=== PATIENT | female | born 1940 | race Caucasian/White ===

== ENCOUNTER 2016-11-19 15:48 | Inpatient (IN) | payer OTHER, BC ==
[~2016-11-19] VITALS: Ht 170.2 cm; Wt 63.1 kg
[~2016-11-19 15:48] MED LIST: LVNIS80 SQ; MGNO400 PO; NYSS/ PO; QSTP PO
[2016-11-19] MEDS ORDERED: PIPERACILLIN/TAZOBACTAM 3.375 GM/100ML D5W IV STA (16:34)
[2016-11-19] MEDS ORDERED: VANCOMYCIN INJ 1,000 MG in SODIUM CHLORIDE 0.9% 250ML 250 ML IV STA (16:34)
[2016-11-19] MEDS ORDERED: PIPERACILL/TAZOBAC IV 3.375 GM in DEXTROSE 5% 100ML IV SCH (16:45)
[2016-11-19] MEDS ORDERED: LEVAQUIN 500MG / 100ML D5W IV ONE (16:45)
[2016-11-19 16:46] LABS: BUN/CREATININE RATIO 33.6 (10-20); CALCIUM 9.1 mg/dl (8.5-10.1); CREATININE 0.94 mg/dl (0.60-1.20); MAGNESIUM 2.2 mg/dl (1.8-2.4); POTASSIUM 4.1 mmol/L (3.5-5.1)
[2016-11-19 16:48] LABS: ALB/GLOB RATIO 0.6 (0.9-2); INR 1.1 (0.9-1.1); PARTIAL THROMBOPLASTIN RATIO 1.6; PROTHROMBIN TIME (PATIENT) 11.9 SECONDS (9.0-12.0)
--- NOTE | 2016-11-19 16:50 | DIAGNOSTIC IMAGING REPORT ---
CHEST ONE VIEW PORTABLE CLINICAL HISTORY: congestion dyspnea COMPARISON STUDY: 11/07/2016 FINDINGS: Interval development of pulmonary vascular congestion. Tortuosity thoracic aorta. Central catheters. Vena cava. No focal infiltrate. IMPRESSION: Pulmonary vascular congestion. No focal infiltrate. Electronically signed by: Mark Reyes M.D. 11/19/2016 4:49 PM
[2016-11-19] MEDS ORDERED: ENOX60IN SQ (17:10)
[2016-11-19 17:39] LABS: URINE APPEARANCE CLOUDY (CLEAR); URINE BILIRUBIN NEG (NEG); URINE COLOR YELLOW; URINE EPITHELIAL CELL AUTO >30 /lpf (0-5); URINE NITRITE NEG (NEG); URINE SPECIFIC GRAVITY 1.022 (1.000-1.030); UROBILINOGEN NEG (NEG); ZZURINE CULT IF INDIC CATH YES
[2016-11-19 17:42] LABS: MANUAL MICROSCOPIC REQUIRED? NO; REVIEW REQ? YES
[2016-11-19 17:54] LABS: URINE PATH CASTS 0-3 GRANULAR CASTS /lpf (0)
[2016-11-19 18:14] LABS: HEMATOCRIT 27.2 % (37-47); MEAN CELL VOLUME 90.7 fL (80-100); MEAN CORPUSCULAR HEMOGLOBIN 31.3 pg (25-34); MEAN CORPUSCULAR HGB CONC 34.6 g/dl (32-36); MEAN PLATELET VOLUME 11.9 fL (7.4-10.4); PLATELET COUNT 157 K/uL (130-400); WHITE BLOOD COUNT 0.76 K/uL (4.8-10.8)
[2016-11-19 18:19] LABS: ANISOCYTOSIS PRESENT; BASO % 3.9 %; BASO ABS # 0.03 K/uL (0-0.2); COMPLETE YES; IG% 1.3 %; LARGE PLATELETS 1+; LYMPH % 42.1 %; LYMPH ABS # 0.32 K/uL (1.2-3.4); MONO % 35.5 %; NEUT % 17.2 %
--- NOTE | 2016-11-19 18:32 | EMERGENCY ROOM VISIT NOTE ---
History Report prepared by Marvin: Suzette Diallo Under the Supervision of: Dr. Black Joiner D.O. First contact with patient: 16:23 Chief Complaint: CONFUSION Stated Complaint: ALTERED MENTAL STATUS, FEVER, COUGH, CONGESTION Nursing Triage Summary: Presented via ALS from [facility] for increased confusion. Patient is neutropenic. Patient went to [facility] for rehab after havign a PE. History of Present Illness The patient is a 75 year old female who presents to the Emergency Room with complaints of worsening confusion beginning FUEL ATTENDANT. The patient is a resident at [facility]. She is there for rehab after a recent PE (11/15/16). Staff at [facility] reports that the patient is confused and more altered today. She is neutropenic and has a fever. She was sent to the ED for further evaluation. The patient denies any complaints at this time. The history is limited secondary to the patient's AMS. Source of History: patient, care home notes History Limited By: AMS Onset: FUEL ATTENDANT Position: other (global) Quality: other (confusion) Timing: worsening Associated Symptoms: + fevers Note: Pt is neutropenic. Review of Systems ROS is limited secondary to the patient's AMS. Past Medical & Surgical Medical Problems: (1) Constipation (2) Left leg DVT (3) MGUS (monoclonal gammopathy of unknown significance) (4) Neutropenic fever (5) Ovarian cancer (6) Ovarian cancer (7) Pulmonary emboli Surgical Problems: (1) History of appendectomy (2) History of hysterectomy (3) History of tonsillectomy Family History Diabetes mellitus FH: cancer FH: gallbladder disease Social History Smoking Status: Never Smoker Alcohol Use: none Drug Use: none Marital Status: single Occupation Status: retired Current/Historical Medications Scheduled Cholestyramine (Cholestyramine Light), 4 GM PO DAILY@1000 Enoxaparin (Lovenox), 60 MG SQ Q12H Magnesium Oxide (Magnesium-Oxide), 400 MG PO BID Nystatin (Nystatin Suspension), 5 ML PO QID Allergies Coded Allergies: Sulfa Antibiotics (Verified Allergy, Mild, UNKNOWN, 11/19/16) Codeine (Verified Allergy, Unknown, `, 11/19/16) Rabies Vaccine (Verified Allergy, Unknown, "can't remember", 11/19/16) Tetanus Toxoid (Verified Allergy, Unknown, ?, 11/19/16) Physical Exam Vital Signs Date Time Temp Pulse Resp B/P Pulse Ox O2 Delivery O2 Flow Rate FiO2 11/19/16 18:10 84 18 145/79 98 Room Air 11/19/16 16:32 97 Room Air 11/19/16 16:30 39.3 11/19/16 16:07 76 11/19/16 15:55 36.9 79 19 121/83 98 Room Air Physical Exam CONSTITUTIONAL/VITAL SIGNS: Reviewed / noted above. GENERAL: Non-toxic in appearance. INTEGUMENTARY: Warm, dry, and [place]. HEAD: Normocephalic. EYES: without scleral icterus or trauma. ENT/OROPHARYNX: clear and moist. LYMPHADENOPATHY/NECK: Is supple without lymphadenopathy or meningismus. RESPIRATORY: Lungs clear and equal. CARDIOVASCULAR: Regular rate and rhythm. GI/ABDOMEN: Soft and nontender. No organomegaly or pulsatile mass. No rebound or guarding. Normal bowel sounds. EXTREMITIES: Warm and well perfused. BACK: No CVA tenderness. NEUROLOGICAL: Intact without focal deficits. PSYCHIATRIC: normal affect. MUSCULOSKELETAL: Normally developed with good muscle tone. Medical Decision & Procedures ER Provider Diagnostic Interpretation: Radiology results as stated below per my review and radiologist interpretation: CHEST ONE VIEW PORTABLE CLINICAL HISTORY: congestion dyspnea COMPARISON STUDY: 11/07/2016 FINDINGS: Interval development of pulmonary vascular congestion. Tortuosity thoracic aorta. Central catheters. Vena cava. No focal infiltrate. IMPRESSION: Pulmonary vascular congestion. No focal infiltrate. Electronically signed by: Mark Reyes M.D. 11/19/2016 4:49 PM Laboratory Results 11/19/16 16:16 Red Blood Count 3.00, Mean Corpuscular Volume 90.7, Mean Corpuscular Hemoglobin 31.3, Mean Corpuscular Hemoglobin Concent 34.6, Mean Platelet Volume 11.9, Neutrophils (%) (Auto) 17.2, Lymphocytes (%) (Auto) 42.1, Monocytes (%) (Auto) 35.5, Eosinophils (%) (Auto) 0.0, Basophils (%) (Auto) 3.9, Neutrophils # (Auto ) 0.13, Lymphocytes # (Auto) 0.32, Monocytes # (Auto) 0.27, Eosinophils # (Auto ) 0.00, Basophils # (Auto) 0.03 11/19/16 16:16 Test 11/19/16 00:00 11/19/16 16:16 11/19/16 16:19 Urine Color YELLOW Urine Appearance CLOUDY (CLEAR) Urine pH 5.0 (4.5-7.5) Urine Specific [place] 1.022 (1.000-1.030) Urine Protein 1+ (NEG) Urine Glucose (UA) NEG (NEG) Urine Ketones NEG (NEG) Urine Occult Blood 1+ (NEG) Urine Nitrite NEG (NEG) Urine Bilirubin NEG (NEG) Urine Urobilinogen NEG (NEG) Urine Leukocyte Esterase NEG (NEG) Urine WBC (Auto) 1-5 /hpf (0-5) Urine RBC (Auto) 0-4 /hpf (0-4) Urine Hyaline Casts (Auto) 1-5 /lpf (0-5) Urine Epithelial Cells (Auto) >30 /lpf (0-5) Urine Bacteria (Auto) 3+ (NEG) Urine Renal Epithelial Cells /lpf (0-5) Urine Pathogenic Casts 0-3 GRANULAR CASTS /lpf (0) Urine Yeast (Auto) (NONE PRSENT) White Blood Count 0.76 K/uL (4.8-10.8) Red Blood Count 3.00 M/uL (4.2-5.4) Hemoglobin 9.4 g/dL (12.0-16.0) Hematocrit 27.2 % (37-47) Mean Corpuscular Volume 90.7 fL (80-100) Mean Corpuscular Hemoglobin 31.3 pg (25-34) Mean Corpuscular Hemoglobin Concent 34.6 g/dl (32-36) Platelet Count 157 K/uL (130-400) Mean Platelet Volume 11.9 fL (7.4-10.4) Neutrophils (%) (Auto) 17.2 % Lymphocytes (%) (Auto) 42.1 % Monocytes (%) (Auto) 35.5 % Eosinophils (%) (Auto) 0.0 % Basophils (%) (Auto) 3.9 % Neutrophils # (Auto) 0.13 K/uL (1.4-6.5) Lymphocytes # (Auto) 0.32 K/uL (1.2-3.4) Monocytes # (Auto) 0.27 K/uL (0.11-0.59) Eosinophils # (Auto) 0.00 K/uL (0-0.5) Basophils # (Auto) 0.03 K/uL (0-0.2) RDW Standard Deviation 64.8 fL (36.4-46.3) RDW Coefficient of Variation 19.3 % (11.5-14.5) Immature Granulocyte % (Auto) 1.3 % Immature Granulocyte # (Auto) 0.01 K/uL (0.00-0.02) Large Platelets 1+ Anisocytosis PRESENT Prothrombin Time 11.9 SECONDS (9.0-12.0) Prothromb Time International Ratio 1.1 (0.9-1.1) Activated Partial Thromboplast Time 41.5 SECONDS (21.0-31.0) Partial Thromboplastin Ratio 1.6 Anion Gap 8.0 mmol/L (3-11) Est Creatinine Clear Calc Drug Dose 49.5 ml/min Estimated GFR () 68.3 Estimated GFR (Non- 58.9 BUN/Creatinine Ratio 33.6 (10-20) Calcium Level 9.1 mg/dl (8.5-10.1) Magnesium Level 2.2 mg/dl (1.8-2.4) Total Bilirubin 0.8 mg/dl (0.2-1) Aspartate Amino Transf (AST/SGOT) 73 U/L (15-37) Alanine Aminotransferase (ALT/SGPT) 54 U/L (12-78) Alkaline Phosphatase 69 U/L (45-117) Total Protein 7.6 gm/dl (6.4-8.2) Albumin 2.9 gm/dl (3.4-5.0) Globulin 4.7 gm/dl (2.5-4.0) Albumin/Globulin Ratio 0.6 (0.9-2) Bedside Lactic Acid Venous 0.93 mmol/L (0.90-1.70) Laboratory results as stated above per my review. Medications Administered Medications (Trade) Dose Ordered Sig/Michael Route Start Time Stop Time Status Last Admin Dose Admin Vancomycin HCl/ Sodium Chloride (Vancomycin Inj/ Nss 250ml) 270 ml @ 125 mls/hr NOW STAT IV 11/19/16 16:34 11/19/16 18:43 DC 11/19/16 17:47 125 MLS/HR Levofloxacin 500 mg 500 mg NOW ONCE IV 11/19/16 16:45 11/19/16 16:46 DC 11/19/16 16:55 500 MG Piperacillin Sod/ Tazobactam Sod/ Dextrose (Zosyn Iv/D5 100ml) 115 ml @ 230 mls/hr TODAY@1645 IV 11/19/16 16:45 11/19/16 19:00 11/19/16 17:11 230 MLS/HR ECG Indication: altered mental status Rate (beats per minute): 76 Rhythm: normal sinus Findings: no acute ischemic change, no ectopy ED Course 1623: Previous medical records were reviewed. The patient was evaluated in room A2. A complete history and physical examination was performed. 1634: Vancomycin HCl 1000 mg/Sodium Chloride 270 ml @ 125 mls/hr IV 1645: Piperacillin Sod/Tazobactam Sod 3.375 gm/Dextrose 115 ml @ 230 mls/hr IV, Levofloxacin 500 mg IV 1838: I reassessed the patient at this time and she is resting comfortably. 1843: I spoke with Dr. Perez. We discussed the patients results and treatment plan. The patient will be evaluated by the [facility] for further management. Medical Decision Differential diagnosis: Etiologies such as viral syndrome, otitis, pharyngitis, pneumonia, influenza, meningitis, urinary tract infection, sepsis, bacteremia, as well as others were entertained. This is a 75-year-old female who presents to the ED from [facility]. The patient was sent there for weakness after being admitted for febrile neutropenia. The patient had a recent fever today and was sent here for evaluation. Temperature at [facility] was 101.3. The patient denies any specific complaints. She is currently undergoing treatment for recent PE. Her physical exam was relatively benign. An EKG shows a normal sinus rhythm at a rate of 76. Temperature here today was 39.3. Chest x-ray did not show any acute disease. BUN is 32 about panel was otherwise unremarkable. CBC reveals a WBC of 0.76 and ANC of 0.13. The patient was treated with IV Zosyn, IV Levaquin and IV vancomycin. She will be seen by the hospitalist for further inpatient care. Consults Time Called: 1841 Consulting Physician: Dr. Perez Returned Call: [address] Perez. We discussed the patients results and treatment plan. The patient will be evaluated by the [facility] for further management. Impression Primary Impression: Neutropenic fever Scribe Attestation The scribe's documentation has been prepared under my direction and personally reviewed by me in its entirety. I confirm that the note above accurately reflects all work, treatment, procedures, and medical decision making performed by me. Departure Information Dispostion Being Evaluated By Hospitalist Jim Elliott M.D. (PCP) Patient Instructions A Signature Page, My [facility]
[2016-11-19] MEDS ORDERED: CONSULT PHARMACY STA (20:31)
[2016-11-19] MEDS ORDERED: ACETAMINOPHEN 325 MG TAB PO PRN (20:45)
[2016-11-19] MEDS ORDERED: PIPERACILL/TAZOBAC IV 4.5 GM in DEXTROSE 5% 100ML 100 ML IV SCH (20:45)
[2016-11-19] MEDS ORDERED: ONDANSETRON INJ 2 MG/ML 2 ML VIAL IV PRN (20:45)
[2016-11-19] MEDS ORDERED: ALUMINUM/MAGNESIUM/SIMETH (MAALOX MAX) 30 ML UDC PO PRN (20:45)
[2016-11-19] MEDS ORDERED: SODIUM CHLORIDE 0.9% 1000ML 1,000 ML IV SCH (20:45)
[2016-11-19] MEDS ORDERED: MAGNESIUM HYDROXIDE SUSP 30 ML UDC PO PRN (20:45)
[2016-11-19] MEDS ORDERED: VANCOMYCIN CONSULT ACTIVE PRN (21:00)
[2016-11-19] MEDS ORDERED: PIPERACILL/TAZOBAC CONSULT ACTIVE PRN (21:00)
--- NOTE | 2016-11-19 21:13 | HISTORY & PHYSICAL EXAMINATION ---
DATE OF ADMISSION: 11/19/2016 REASON FOR PRESENTATION: Fever. REASON FOR ADMISSION: Neutropenic fever. HISTORY OF PRESENT ILLNESS: Ms. Blood, she is a 75-year-old female with stage IV metastatic ovarian cancer. She was in our facility in October, discharged on November 13 with a neutropenic fever and at that time was found to have a urinary tract infection, which grew a pansensitive E. coli. She was treated with 7 days of ciprofloxacin and sent to [facility]. During that stay, she also did receive 2 units of packed red blood cells. At the time of her discharge, her white blood cell count was 1.79. During that hospitalization, there was some discussion in the oncologist's notes about utility of additional therapy, although Ms. Blood does not recall that discussion, this is documented in Dr. Condon's note. She is here today with a temperature of 39.3 Celsius. She has no focal complaints or symptoms such as cough, sinus fullness, tender teeth, painful skin areas or dysuria. She has a chronic persistent diarrhea that began during her hospital stay and has persistent despite the use of cholestyramine since discharge. During her last hospital stay, she also did have C. diff sent which was unremarkable. The typical infectious etiologies were also negative. She had a rotavirus send away that was negative. In the Emergency Department, she was given vancomycin, Zosyn and Levaquin. PAST MEDICAL HISTORY: As mentioned, the ovarian cancer, MGUS, recent PE, DVT on therapeutic Lovenox, appendectomy, hysterectomy, tonsillectomy and the E. coli UTI. MEDICATIONS ON PRESENTATION: Really cholestyramine 4 grams daily, Lovenox 60 mg q. 12, magnesium oxide 400 b.i.d. and she was on nystatin suspension, which was stopped. SOCIAL HISTORY: She does not smoke or drink, never has. FAMILY HISTORY: Diabetes, cancer, and gallbladder disease. REVIEW OF SYSTEMS: Related general weakness and feeling ill because of her fever; 10 systems were reviewed and are negative. PHYSICAL EXAMINATION: VITAL SIGNS: Physically as mentioned, she was febrile in the ER, her pulse was 82, respirations 18, BP 132/79, O2 sat 98%. HEENT: PERRL, EOMI. Oropharynx - she is missing 2 front teeth there. Her other mucosa is without evidence of infection, induration, or thrush. NECK: Without lymphadenopathy, JVD, and her trachea is midline. HEART: Regular without murmurs, clicks, rubs or gallops. LUNGS: Clear without wheezes or crackles. Good air movement. ABDOMEN: Normoactive bowel sounds, soft, nontender, nondistended, no organomegaly. No bruits. EXTREMITIES: Without cyanosis, clubbing or edema. SKIN: With areas of bruising and some abrasions, but nothing looking acutely infected. NEUROLOGICALLY: She is awake, alert and appropriate. Cranial nerves II-XII are intact. Equal symmetrical strength and sensation. LABORATORY DATA: As mentioned, she is neutropenic with a total white count of 8.7 and 130 neutrophils. Her H\T\H was 9 and 27 and her platelet count was 157. BUN and creatinine are 32 and 0.9. Her glucose is 100. She does have slight elevation of the AST to 73, but the normal is 37; this is isolated but no other LFT abnormalities noted. Her albumin is poor of 2.9, likely with mild to moderate protein malnutrition as her total protein is normal at 7.6 but this may be a part of her MGUS, I am not sure. Coagulation studies are unremarkable. Urine shows 1+ blood, greater than 30 epis and culture is pending. IMAGING DATA: A chest x-ray was performed which showed no focal infiltrates and an EKG was performed which shows normal sinus rhythm. ASSESSMENT: A 75-year-old female here with neutropenic fever. PLAN: Per most recent up-to-date Dynamed, we will treat this patient with model therapy with Zosyn, pending culture results. We will maintain her vancomycin just because of her exposure to healthcare. We will reculture her urine in case she has a recurrent infection. Blood cultures are also pending. Regarding her recent DVT and PE, will continue her Lovenox therapy, hopefully her pharmacy can evaluate, just if need be. Regarding her diarrhea, we will recheck for infectious studies and continue her cholestyramine. Regarding her anemia, this is likely related to her malignant process, we will watch this to determine if she needs future transfusions. Regarding her isolated liver transaminase elevation, unclear the meaning of this. We will watch for clinical symptoms. She did have an abdomen and pelvis CT study done on October 24, there were no hepatic or splenic masses seen at that time. The patient is a full code. I discussed this with the patient and she says she is undecided at this time, likely this need be discussion had with oncology and perhaps palliative care to if she truly has no further salvage therapy available for her advanced malignancy, consideration for DNR status would be reasonable. MTDD
--- NOTE | 2016-11-19 21:27 | Pharmacy Progress Note ---
Pharmacy Antibiotic Consult Date of Service: Nov 19, 2016. Pharmacy Dosing Scope Pharmacy is consulted to initiate vancomycin IV and pip/tazo IV dosing therapy, order appropriate labs and adjust drug dose/frequency. Subjective The patient is a 75 year old female admitted on 11/19/16. Objective Height (Feet): 5 Height (Inches): 7.00 Weight (Kilograms): 69.900 Lab Results (24hrs): Laboratory Tests Test 11/19/16 16:16 BUN/Creatinine Ratio 33.6 Blood Urea Nitrogen 32 mg/dl Creatinine 0.94 mg/dl White Blood Count 0.76 K/uL Red Blood Count 3.00 M/uL Hemoglobin 9.4 g/dL Hematocrit 27.2 % Mean Corpuscular Volume 90.7 fL Mean Corpuscular Hemoglobin 31.3 pg Mean Corpuscular Hemoglobin Concent 34.6 g/dl Platelet Count 157 K/uL Mean Platelet Volume 11.9 fL Neutrophils (%) (Auto) 17.2 % Lymphocytes (%) (Auto) 42.1 % Monocytes (%) (Auto) 35.5 % Eosinophils (%) (Auto) 0.0 % Basophils (%) (Auto) 3.9 % Neutrophils # (Auto) 0.13 K/uL Lymphocytes # (Auto) 0.32 K/uL Monocytes # (Auto) 0.27 K/uL Eosinophils # (Auto) 0.00 K/uL Basophils # (Auto) 0.03 K/uL Micro Results: Item Value Date Time Urine Culture Received 11/19/16 0000 Urine,Catheterized Pending Blood Culture Received 11/19/16 1618 Blood Pending Blood Culture Received 11/19/16 1616 Blood Pending Assessment & Plan Assessment: * Patient is a 75 year-old female admitted with neutropenic fever. * She was recently admitted with neutropenic fever and is a [place] resident. Patient is at baseline renal function. * Pharmacy was consulted to dose the vancomycin IV and pip/tazo IV therapy. Patient received a 1x dose of levofloxacin in the ER. * Calculated vanco half-life to be ~15.4hrs, ke to be 0.0045hr-1, and Vd to be 0.74L/kg. * Urine culture and 2 BCs are pending in the computer. Plan: Vanco: * Patient received a loading dose of 1g x 1 dose of vanco in the ER. * Will give patient another loading dose of vanco of 750mg IV x 1 dose to make a full 25mg/kg load of vanco for the patient. * Will then make the maintenance dosing to be 1050mg IV q18h (~15mg/kg). * Will get a trough level on 11/22 @ 0130. This will be before the 3rd maintenance dose. Pip/tazo: * Patient got a 3.375g IV x 1 dose of pip/tazo. * Will make the maintenance dosing of pip/tazo to be 3.375g IV q8h for extended infusion dosing due to a CrCl>20ml/min. Pharmacy will continue to follow and will adjust dose/frequency as necessary. Thank you
[2016-11-19] MEDS ORDERED: VANCOMYCIN INJ 750 MG in SODIUM CHLORIDE 0.9% 250ML 250 ML IV ONE (21:30)
[2016-11-19] MEDS ORDERED: FILGRASTIM 300 MCG/ML 1 ML VIAL SQ STA (22:07)
[2016-11-19 22:36] VITALS: BP 126/69; PULSE 77; TEMP 37.2; O2SAT 98; BMI 22.5
[2016-11-19 23:51] VITALS: BP 111/66; PULSE 76; TEMP 37.2; O2SAT 97
[2016-11-20] MEDS: ENOXAPARIN 60 MG/0.6 ML SYR SQ SCH ×3 (00:09→21:40)
[2016-11-20] MEDS: PIPERACILL/TAZOBAC IV 3.375 GM in DEXTROSE 5% 100ML IV SCH ×4 (00:11→21:40)
[2016-11-20 03:45] VITALS: BP 111/68; PULSE 69; TEMP 37.1; O2SAT 97
[2016-11-20 05:51] LABS: COMPLETE YES; HEMATOCRIT 26.8 % (37-47); LYMPH % 12.2 %; LYMPH ABS # 0.21 K/uL (1.2-3.4); MEAN CELL VOLUME 91.5 fL (80-100); MEAN CORPUSCULAR HEMOGLOBIN 32.1 pg (25-34); MEAN CORPUSCULAR HGB CONC 35.1 g/dl (32-36); MEAN PLATELET VOLUME 10.8 fL (7.4-10.4); MONO % 14.5 %; NEUT % 73.3 %; PLATELET COUNT 140 K/uL (130-400); RED BLOOD COUNT 2.93 M/uL (4.2-5.4); WHITE BLOOD COUNT 1.72 K/uL (4.8-10.8)
[2016-11-20 06:18] LABS: BUN/CREATININE RATIO 23.3 (10-20); CALCIUM 8.4 mg/dl (8.5-10.1); CREATININE 0.96 mg/dl (0.60-1.20); POTASSIUM 3.9 mmol/L (3.5-5.1)
[2016-11-20 07:56] VITALS: BP 108/64; PULSE 69; TEMP 37; O2SAT 98
[2016-11-20] MEDS: MAGNESIUM OXIDE 400 MG TAB PO SCH ×2 (08:41→19:30)
[2016-11-20] MEDS: CHOLESTYRAMINE LIGHT 4 GM PKT PO SCH (10:10)
--- NOTE | 2016-11-20 10:10 | Hospitalist Progress Note ---
Hospitalist Progress Note Date of Service Nov 20, 2016. Subjective Pt evaluation today including: conversation w/ patient, physical exam, chart review, lab review, review of studies, review of inpatient medication list Pain: None PO Intake: Good Voiding: no voiding problems Pt was seen and examined this morning. She is doing ok, patient denies any acute complaints. Her forehead is wet with sweat, although she denies fever and chills overnight. Pt is agreeable to seeing oncology and palliative teams to see her. Constitutional: No chills, No fever, No sweats Respiratory: + shortness of breath (with minimal movement and exertion), No cough, No sputum Cardiovascular: No chest pain Abdomen: No constipation, No diarrhea, No nausea, No pain, No vomiting Musculoskeletal: No joint pain Neurologic: No numbness/tingling Skin: No rash Objective Vital Signs Date Time Temp Pulse Resp B/P Pulse Ox O2 Delivery O2 Flow Rate FiO2 11/20/16 03:45 37.1 69 20 111/68 97 Room Air 11/20/16 01:50 Room Air 11/19/16 23:51 37.2 76 18 111/66 97 Room Air 11/19/16 22:36 37.2 77 20 126/69 98 Room Air 11/19/16 21:23 78 18 140/60 97 Room Air 11/19/16 19:32 82 18 132/79 98 Room Air 11/19/16 18:10 84 18 145/79 98 Room Air 11/19/16 16:32 97 Room Air 11/19/16 16:30 39.3 11/19/16 16:07 76 11/19/16 15:55 36.9 79 19 121/83 98 Room Air Physical Exam General Appearance: + thin, + pertinent finding (Forhead is beaded with sweat) Eyes: PERRL, EOMI ENT: pharynx normal, + pertinent finding (poor dentition, missing multiple lower teeth) Neck: no JVD Respiratory/Chest: lungs clear, no accessory muscle use, + pertinent finding ( RR=18, no adventitious breath sounds. ) Cardiovascular: regular rate, rhythm, no murmur, + systolic murmur Abdomen: normal bowel sounds, non tender, soft Extremities: non-tender, no pedal edema, no calf tenderness Neurologic/Psychiatric: oriented x 3 Skin: normal color, + diaphoresis Laboratory Results Last 24 Hours Test 11/19/16 16:16 11/19/16 16:19 11/20/16 05:25 White Blood Count 0.76 K/uL 1.72 K/uL Red Blood Count 3.00 M/uL 2.93 M/uL Hemoglobin 9.4 g/dL 9.4 g/dL Hematocrit 27.2 % 26.8 % Mean Corpuscular Volume 90.7 fL 91.5 fL Mean Corpuscular Hemoglobin 31.3 pg 32.1 pg Mean Corpuscular Hemoglobin Concent 34.6 g/dl 35.1 g/dl Platelet Count 157 K/uL 140 K/uL Mean Platelet Volume 11.9 fL 10.8 fL Neutrophils (%) (Auto) 17.2 % 73.3 % Lymphocytes (%) (Auto) 42.1 % 12.2 % Monocytes (%) (Auto) 35.5 % 14.5 % Eosinophils (%) (Auto) 0.0 % 0.0 % Basophils (%) (Auto) 3.9 % 0.0 % Neutrophils # (Auto) 0.13 K/uL 1.26 K/uL Lymphocytes # (Auto) 0.32 K/uL 0.21 K/uL Monocytes # (Auto) 0.27 K/uL 0.25 K/uL Eosinophils # (Auto) 0.00 K/uL 0.00 K/uL Basophils # (Auto) 0.03 K/uL 0.00 K/uL RDW Standard Deviation 64.8 fL 64.4 fL RDW Coefficient of Variation 19.3 % 19.0 % Immature Granulocyte % (Auto) 1.3 % 0.0 % Immature Granulocyte # (Auto) 0.01 K/uL 0.00 K/uL Large Platelets 1+ Anisocytosis PRESENT Prothrombin Time 11.9 SECONDS Prothromb Time International Ratio 1.1 Activated Partial Thromboplast Time 41.5 SECONDS Partial Thromboplastin Ratio 1.6 Sodium Level 134 mmol/L 138 mmol/L Potassium Level 4.1 mmol/L 3.9 mmol/L Chloride Level 106 mmol/L 109 mmol/L Carbon Dioxide Level 20 mmol/L 21 mmol/L Anion Gap 8.0 mmol/L 8.0 mmol/L Blood Urea Nitrogen 32 mg/dl 22 mg/dl Creatinine 0.94 mg/dl 0.96 mg/dl Est Creatinine Clear Calc Drug Dose 49.5 ml/min 48.5 ml/min Estimated GFR () 68.3 66.6 Estimated GFR (Non- 58.9 57.4 BUN/Creatinine Ratio 33.6 23.3 Random Glucose 100 mg/dl 91 mg/dl Calcium Level 9.1 mg/dl 8.4 mg/dl Magnesium Level 2.2 mg/dl Total Bilirubin 0.8 mg/dl Aspartate Amino Transf (AST/SGOT) 73 U/L Alanine Aminotransferase (ALT/SGPT) 54 U/L Alkaline Phosphatase 69 U/L Total Protein 7.6 gm/dl Albumin 2.9 gm/dl Globulin 4.7 gm/dl Albumin/Globulin Ratio 0.6 Bedside Lactic Acid Venous 0.93 mmol/L Assessment and Plan This is a 75 yo F who presented with neutropenic fever, PMHx includes stage 4 metastatic ovarian cancer. She was recently admitted and discharged on 11/13 to [facility] for neutropenic fever, also being found to have a UTI and treated wtih 7 days of cipro. Pt is on therapeutic lovenox for recent DVT/PE. Neutropenic Fever - Pt remained afebrile overnight, other VSS- she is diaphoretic on exam her back is soaked with sweat. - Blood cultures in process - UA is slightly dirty, awaiting culture results. - Continue vanc and zosyn at this time, pt received 1 dose of levaquin yesterday in [facility] ED. - During last admission from 11/08-11/13 the patient received neupogen injections daily and Dr. Kwok was consulted. Will ask oncology to consult the patient to determine if salvage therapy would be appropriate at this time. It may also be reasonable to consider no further treatment with chemotherapy if the risks outweight the benefits. The patient is also Full resuscitation per code status, will consult palliative - pt is agreeable to speaking with both services. Anemia - Hbg remains stable MGUS Elevated Transaminase - likely in relation to malignancy although on the last CT of abdomen/pelvis completed on 10/24 there was no liver or spleen involvement. - Recheck tomorrow Diarrhea - Infectious studies including c. diff, shiga toxin, salmonella, rotavirus, giardia, were sent during last admission and were all negative. DVT/PE - Continue therapeutic lovenox Disposition: from home, lives alone, will ask CM to assist with discharge planning.
[2016-11-20 11:27] VITALS: BP 122/70; PULSE 71; TEMP 36.8; O2SAT 98
[2016-11-20] MEDS: VANCOMYCIN INJ 1,050 MG in SODIUM CHLORIDE 0.9% 250ML 250 ML IV SCH (13:42)
[2016-11-20 15:19] VITALS: BP 116/72; PULSE 18; PULSE 70; TEMP 36.5; O2SAT 98
[2016-11-20 19:59] VITALS: BP 112/69; PULSE 68; TEMP 36.9; O2SAT 96
[2016-11-21] VITALS: O2SAT 96
[2016-11-21 00:28] VITALS: BP 120/72; PULSE 70; TEMP 36.8; O2SAT 96
[2016-11-21 04:00] VITALS: BP 109/69; PULSE 71; TEMP 36.7; O2SAT 95
[2016-11-21] MEDS: PIPERACILL/TAZOBAC IV 3.375 GM in DEXTROSE 5% 100ML IV SCH ×3 (06:00→22:19)
[2016-11-21 06:13] LABS: BASO ABS # 0.01 K/uL (0-0.2); COMPLETE YES; HEMATOCRIT 26.1 % (37-47); LYMPH % 29.3 %; LYMPH ABS # 0.29 K/uL (1.2-3.4); MEAN CELL VOLUME 92.6 fL (80-100); MEAN CORPUSCULAR HEMOGLOBIN 31.9 pg (25-34); MEAN CORPUSCULAR HGB CONC 34.5 g/dl (32-36); MONO % 23.2 %; NEUT % 46.5 %; PLATELET COUNT 133 K/uL (130-400); RED BLOOD COUNT 2.82 M/uL (4.2-5.4); WHITE BLOOD COUNT 0.99 K/uL (4.8-10.8)
[2016-11-21 06:14] LABS: ANISOCYTOSIS PRESENT; LARGE PLATELETS 1+
[2016-11-21] MEDS: FILGRASTIM 300 MCG/ML 1 ML VIAL SQ SCH (08:23)
[2016-11-21] MEDS: MAGNESIUM OXIDE 400 MG TAB PO SCH ×2 (08:23→20:26)
[2016-11-21] MEDS: VANCOMYCIN INJ 1,050 MG in SODIUM CHLORIDE 0.9% 250ML 250 ML IV SCH (08:25)
[2016-11-21 08:39] VITALS: BP 108/62; PULSE 61; TEMP 36.8; O2SAT 95
--- NOTE | 2016-11-21 09:35 | Hospitalist Progress Note ---
Hospitalist Progress Note Date of Service Nov 21, 2016. Subjective Pt evaluation today including: conversation w/ patient, physical exam, chart review, lab review, review of studies, review of inpatient medication list Pain: None PO Intake: Good Voiding: no voiding problems Pt was seen and examined this morning. She is doing well overall without complaints. The pts WBC = 0.99 and neutrophils = 0.46. She denies fever, sweats or chills. VSS without fevers overnight. Pt is agreeable to starting neupogen injections Constitutional: No chills, No fever, No sweats ENT: No nasal symptoms, No sore throat, No tinnitus, No unusual epistaxis Respiratory: + shortness of breath (wih movement to bedside toilet. Pt has not gotten up and walked more than just in the room. ), No cough, No dyspnea at rest, No sputum Cardiovascular: No chest pain, No palpitations Abdomen: No constipation, No diarrhea, No nausea, No pain, No vomiting Musculoskeletal: No joint pain Female : No dysuria Neurologic: No numbness/tingling, No weakness Objective Vital Signs Date Time Temp Pulse Resp B/P Pulse Ox O2 Delivery O2 Flow Rate FiO2 11/21/16 08:39 36.8 61 20 108/62 95 Room Air 11/21/16 04:00 36.7 71 20 109/69 95 Room Air 11/21/16 00:28 36.8 70 18 120/72 96 Room Air 11/21/16 00:00 96 Room Air 11/20/16 19:59 36.9 68 20 112/69 96 Room Air 11/20/16 15:52 Room Air 11/20/16 15:19 36.5 70 18 116/72 98 Room Air 11/20/16 11:27 36.8 71 18 122/70 98 Room Air Physical Exam General Appearance: WD/WN, no apparent distress, + thin Eyes: PERRL, EOMI ENT: hearing grossly normal, + pertinent finding (poor dentition, missing multiple teeth. MMM. ) Neck: no JVD Respiratory/Chest: lungs clear, normal breath sounds, no respiratory distress, no accessory muscle use Cardiovascular: regular rate, rhythm, + pertinent finding (Mildly tachcardic, no MRGs) Abdomen: normal bowel sounds, non tender, soft, no organomegaly Extremities: non-tender, no pedal edema, no calf tenderness Neurologic/Psychiatric: alert, normal mood/affect, oriented x 3 Skin: normal color, warm/dry Laboratory Results Last 24 Hours Test 11/21/16 05:14 White Blood Count 0.99 K/uL Red Blood Count 2.82 M/uL Hemoglobin 9.0 g/dL Hematocrit 26.1 % Mean Corpuscular Volume 92.6 fL Mean Corpuscular Hemoglobin 31.9 pg Mean Corpuscular Hemoglobin Concent 34.5 g/dl Platelet Count 133 K/uL Mean Platelet Volume 11.0 fL Neutrophils (%) (Auto) 46.5 % Lymphocytes (%) (Auto) 29.3 % Monocytes (%) (Auto) 23.2 % Eosinophils (%) (Auto) 0.0 % Basophils (%) (Auto) 1.0 % Neutrophils # (Auto) 0.46 K/uL Lymphocytes # (Auto) 0.29 K/uL Monocytes # (Auto) 0.23 K/uL Eosinophils # (Auto) 0.00 K/uL Basophils # (Auto) 0.01 K/uL RDW Standard Deviation 65.8 fL RDW Coefficient of Variation 19.0 % Immature Granulocyte % (Auto) 0.0 % Immature Granulocyte # (Auto) 0.00 K/uL Large Platelets 1+ Anisocytosis PRESENT Assessment and Plan This is a 75 yo F who presented with neutropenic fever, PMHx includes stage 4 metastatic ovarian cancer. She was recently admitted and discharged on 11/13 to [facility] for neutropenic fever, also being found to have a UTI and treated wtih 7 days of cipro. Pt is on therapeutic lovenox for recent DVT/PE. Neutropenic Fever - Pt remained afebrile overnight, other VSS: - WBC decreased to 0.99 and neutrophils to 0.49. Will start neupogen injections today scheduled daily, with daily CBC with diff to monitor. Would ask that oncology weighs in on this today. - Blood cultures in process- NGTD prelim - UA is slightly dirty, culture- NGTD prelim - Continue vanc and zosyn at this time, pt received 1 dose of levaquin 11/19 in the ED. - During last admission from 11/08-11/13 the patient received neupogen injections daily and Dr. Kwok was consulted. Will ask oncology to consult the patient to determine if salvage therapy would be appropriate at this time. It may also be reasonable to consider no further treatment with chemotherapy if the risks outweight the benefits. - Pt code status was changed yesterday by Dr. Duke to DNR. Anemia - Hbg remains stable MGUS Elevated Transaminase - likely in relation to malignancy although on the last CT of abdomen/pelvis completed on 10/24 there was no liver or spleen involvement. - Follow am labs Diarrhea - Infectious studies including c. diff, shiga toxin, salmonella, rotavirus, giardia, were sent during last admission and were all negative. DVT/PE - Continue therapeutic lovenox Disposition: from home, lives alone, will ask CM to assist with discharge planning.
[2016-11-21] MEDS: CHOLESTYRAMINE LIGHT 4 GM PKT PO SCH ×2 (10:03→17:01)
[2016-11-21] MEDS: ENOXAPARIN 60 MG/0.6 ML SYR SQ SCH ×2 (10:04→22:18)
[2016-11-21] MEDS ORDERED: LOPERAMIDE HCL 2 MG CAP PO PRN (14:00)
--- NOTE | 2016-11-21 14:04 | Palliative Care Consultation ---
Consultation Date of Consultation: Nov 21, 2016. Requesting Physician: Dr. Tinoco Attending Physician: Dr. Tinoco Reason for Consultation: Goals of care History of Present Illness This 75 year old female patient presented to the ED two days ago with a neutropenic fever. She was just discharged from [facility] on 11/13 after being treated for neutropenic fever, E. coli UTI, and anemia. She had received 7 days of Cipro and 2 units of packed red blood cells. She went to [facility] rehab after that hospitalization. Apparently there was talk about additional therapy for her stage IV metastatic ovarian CA, but the patient was unaware of this. The day of admission, her temp was 39.3, and she was having persistent diarrhea since discharge despite the use of cholestyramine. She was admitted and started on Zosyn and vancomycin. Stool was tested, C. diff and other cultures negative. She lives at home alone but is now probably not going to be able to return home. Palliative care consulted to assist with establishing goals of care. I met with the patient in her room. She was awake, alert and oriented. Per nursing, she does have some periods of forgetfulness. The patient stated that she really doesn't know where she stands from an oncology standpoint and would be willing to do more therapy if available. She would like to talk with her oncologist before she is able to really say what her goals of care are regarding cancer treatment. We did discuss that she is not really able to live at home alone any more and she agreed. she is willing to be placed permanently. She still wishes to be a DNR/DNI. Further goals of care can be decided once she is able to speak with her oncologist. She denies any complaints of pain or discomfort at this time. Past Medical/Surgical History Medical History: Stage IV metastatic ovarian CA MGUS PE/DVT on Lovenox UTI Surgical History: Appendectomy Hysterectomy Tonsillectomy Social History Smoking Status: Never Smoker History of Alcohol Use: No Drug Use: none Marital Status: single Housing Status: lives alone Occupation Status: retired Review of Systems Constitutional: + sweats, + weakness, No chills, No fever Respiratory: No cough, No dyspnea on exertion, No shortness of breath, No sputum Cardiac: No chest pain, No palpitations Abdomen: + diarrhea, No nausea, No pain, No vomiting Female : No problem reported Allergies Coded Allergies: Sulfa Antibiotics (Verified Allergy, Mild, UNKNOWN, 11/19/16) Codeine (Verified Allergy, Unknown, `, 11/19/16) Rabies Vaccine (Verified Allergy, Unknown, "can't remember", 11/19/16) Tetanus Toxoid (Verified Allergy, Unknown, ?, 11/19/16) Medications Current Inpatient Medications Medications (Trade) Dose Ordered Sig/Michael Route Start Time Stop Time Status Last Admin Dose Admin Enoxaparin Sodium (Lovenox Inj) 60 mg Q12H SQ 11/19/16 22:00 12/19/16 21:59 11/21/16 10:04 60 MG Magnesium Oxide (Mag-Ox Tab) 400 mg BID PO 11/19/16 21:00 12/19/16 20:59 11/21/16 08:23 400 MG Acetaminophen (Tylenol Tab) 650 mg Q4H PRN PO 11/19/16 20:45 12/19/16 20:44 Al Hydrox/Mg Hydrox/Simethicone (Maalox Max Susp) 15 ml Q4H PRN PO 11/19/16 20:45 12/19/16 20:44 Magnesium Hydroxide (Milk Of Magnesia Susp) 30 ml Q6H PRN PO 11/19/16 20:45 12/19/16 20:44 Ondansetron HCl (Zofran Inj) 4 mg Q6H PRN IV 11/19/16 20:45 12/19/16 20:44 Cholestyramine Resin (Questran Powder Light) 4 gm DAILY@1000 PO 11/20/16 10:00 12/20/16 09:59 11/21/16 10:03 4 GM Vancomycin HCl (Consult) 1 ea UD PRN N/A 11/19/16 21:00 12/19/16 20:59 Piperacillin Sod/ Tazobactam Sod 1 ea 1 ea UD PRN N/A 11/19/16 21:00 12/19/16 20:59 Vancomycin HCl 1050 mg/Sodium Chloride 271 ml @ 125 mls/hr Q18H IV 11/20/16 14:00 11/30/16 13:59 11/21/16 08:25 125 MLS/HR Piperacillin Sod/ Tazobactam Sod/ Dextrose (Zosyn Iv/D5 100ml) 115 ml @ 28.75 mls/ hr Q8@0600,1400,2200 IV 11/19/16 23:00 11/29/16 22:59 11/21/16 13:00 28.75 MLS/HR Heparin Sodium (Porcine) (Heparin 100 Unit/ml 5ml Flush) 5 ml PRN PRN IV 11/20/16 13:15 12/20/16 13:14 11/21/16 06:00 5 ML Filgrastim (Neupogen Sq) 300 mcg QAM SQ 11/21/16 09:00 12/21/16 08:59 11/21/16 08:23 300 MCG Physical Exam Date Time Temp Pulse Resp B/P Pulse Ox O2 Delivery O2 Flow Rate FiO2 11/21/16 08:39 36.8 61 20 108/62 95 Room Air 11/21/16 08:30 Room Air 11/21/16 04:00 36.7 71 20 109/69 95 Room Air 11/21/16 00:28 36.8 70 18 120/72 96 Room Air 11/21/16 00:00 96 Room Air 11/20/16 19:59 36.9 68 20 112/69 96 Room Air 11/20/16 15:52 Room Air 11/20/16 15:19 36.5 70 18 116/72 98 Room Air General Appearance: no apparent distress Neck: no JVD, trachea midline Respiratory: lungs clear, no respiratory distress, no accessory muscle use Cardiovascular: regular rate, rhythm, no edema, + normal peripheral pulses Abdomen: normal bowel sounds, non tender, soft Neurologic/Psychiatric: alert, normal mood/affect, oriented x 3 Skin: + pallor Laboratory Results Last 24 Hours Test 11/21/16 05:14 White Blood Count 0.99 K/uL Red Blood Count 2.82 M/uL Hemoglobin 9.0 g/dL Hematocrit 26.1 % Mean Corpuscular Volume 92.6 fL Mean Corpuscular Hemoglobin 31.9 pg Mean Corpuscular Hemoglobin Concent 34.5 g/dl Platelet Count 133 K/uL Mean Platelet Volume 11.0 fL Neutrophils (%) (Auto) 46.5 % Lymphocytes (%) (Auto) 29.3 % Monocytes (%) (Auto) 23.2 % Eosinophils (%) (Auto) 0.0 % Basophils (%) (Auto) 1.0 % Neutrophils # (Auto) 0.46 K/uL Lymphocytes # (Auto) 0.29 K/uL Monocytes # (Auto) 0.23 K/uL Eosinophils # (Auto) 0.00 K/uL Basophils # (Auto) 0.01 K/uL RDW Standard Deviation 65.8 fL RDW Coefficient of Variation 19.0 % Immature Granulocyte % (Auto) 0.0 % Immature Granulocyte # (Auto) 0.00 K/uL Large Platelets 1+ Anisocytosis PRESENT Total Bilirubin 0.7 mg/dl Direct Bilirubin 0.2 mg/dl Aspartate Amino Transf (AST/SGOT) 80 U/L Alanine Aminotransferase (ALT/SGPT) 57 U/L Alkaline Phosphatase 68 U/L Total Protein 7.0 gm/dl Albumin 2.4 gm/dl Assessment & Plan Palliative Performance Scale: 70 % Problem list: Weakness Neutropenic fever Anemia MGUS Elevated Transaminase Diarrhea DVT/PE Goals of care Palliative care plan: Patient is still waiting to follow up with oncology to know where she stands from an oncology standpoint. If there is further treatment available for her, she would like to pursue it. She wishes to remain DNR/DNI. I am also recommending placement into a facility for her and likely she'll need acute rehab. PT/OT ordered, would follow their recommendations. No symptoms need addressed at this time. Thank you very much for this consult.
[2016-11-21 15:07] VITALS: BP 114/73; PULSE 68; TEMP 36.5; O2SAT 99
[2016-11-21 19:40] VITALS: BP 112/68; PULSE 66; TEMP 36.8; O2SAT 97
[2016-11-22] VITALS (7 sets, daily range): BP systolic 99–116; BP diastolic 61–71; PULSE 60–70; TEMP 36.3–36.8; O2SAT 95–99
[2016-11-22] MEDS ORDERED: VANCOMYCIN TROUGH SCH (01:30)
[2016-11-22] MEDS ORDERED: VANCOMYCIN TROUGH ONE (01:30)
[2016-11-22] MEDS: VANCOMYCIN INJ 1,050 MG in SODIUM CHLORIDE 0.9% 250ML 250 ML IV SCH (02:44)
[2016-11-22] MEDS: PIPERACILL/TAZOBAC IV 3.375 GM in DEXTROSE 5% 100ML IV SCH (06:04)
[2016-11-22 06:53] LABS: BUN/CREATININE RATIO 19.5 (10-20); CALCIUM 8.3 mg/dl (8.5-10.1); POTASSIUM 3.8 mmol/L (3.5-5.1)
[2016-11-22 07:03] LABS: HEMATOCRIT 26.9 % (37-47); MEAN CELL VOLUME 93.7 fL (80-100); MEAN CORPUSCULAR HEMOGLOBIN 31.4 pg (25-34); MEAN CORPUSCULAR HGB CONC 33.5 g/dl (32-36); MEAN PLATELET VOLUME 11.8 fL (7.4-10.4); PLATELET COUNT 126 K/uL (130-400); RED BLOOD COUNT 2.87 M/uL (4.2-5.4); WHITE BLOOD COUNT 1.19 K/uL (4.8-10.8)
[2016-11-22 07:05] LABS: ANISOCYTOSIS PRESENT; DOHLE BODIES 1+; LARGE PLATELETS 2+; VACUOLIZATION 2+
[2016-11-22 07:14] LABS: COMPLETE YES; LYMPH ABS # 0.29 K/uL (1.2-3.4); LYMPHOCYTE % 24.3 %; NEUTROPHILS % 54.8 %
[2016-11-22] MEDS: MAGNESIUM OXIDE 400 MG TAB PO SCH ×2 (07:43→21:16)
[2016-11-22] MEDS: FILGRASTIM 300 MCG/ML 1 ML VIAL SQ SCH (07:47)
[2016-11-22] MEDS: CHOLESTYRAMINE LIGHT 4 GM PKT PO SCH ×2 (09:39→17:06)
[2016-11-22] MEDS: ENOXAPARIN 60 MG/0.6 ML SYR SQ SCH ×2 (09:40→21:17)
--- NOTE | 2016-11-22 10:14 | Hospitalist Progress Note ---
Hospitalist Progress Note Date of Service Nov 22, 2016. Subjective Pt evaluation today including: conversation w/ patient, physical exam, chart review, lab review, review of studies, review of inpatient medication list Pain: None PO Intake: Good Voiding: no voiding problems Pt was seen and examined this morning. She has no acute complaints. Pt feels well, slept well. She reports 4 loose bowel movements this morning. Constitutional: No chills, No fever, No sweats ENT: No nasal symptoms, No sore throat, No tinnitus Respiratory: No cough, No shortness of breath, No wheezing Cardiovascular: No chest pain, No palpitations Abdomen: + diarrhea, No constipation, No nausea, No pain, No vomiting Musculoskeletal: No joint pain Female : No dysuria Neurologic: No numbness/tingling, No weakness Objective Vital Signs Date Time Temp Pulse Resp B/P Pulse Ox O2 Delivery O2 Flow Rate FiO2 11/22/16 07:50 Room Air 11/22/16 07:36 36.8 60 20 100/61 98 Room Air 11/22/16 04:04 36.6 60 17 99/64 96 Room Air 11/22/16 00:46 36.8 70 16 106/62 95 Room Air 11/22/16 00:15 Room Air 11/21/16 19:40 36.8 66 18 112/68 97 Room Air 11/21/16 15:07 36.5 68 18 114/73 99 Room Air 11/21/16 15:05 Room Air Physical Exam General Appearance: WD/WN, no apparent distress Eyes: PERRL, EOMI ENT: hearing grossly normal, pharynx normal, + pertinent finding (poor dentition) Neck: supple Respiratory/Chest: lungs clear, normal breath sounds, no respiratory distress, no accessory muscle use Cardiovascular: regular rate, rhythm, no JVD, no murmur Abdomen: normal bowel sounds, non tender, soft Extremities: non-tender, no pedal edema, no calf tenderness Neurologic/Psychiatric: alert, normal mood/affect, oriented x 3 Skin: normal color, warm/dry Laboratory Results Last 24 Hours Test 11/22/16 01:46 11/22/16 05:20 Vancomycin Level Trough 10.9 mcg/ml White Blood Count 1.19 K/uL Red Blood Count 2.87 M/uL Hemoglobin 9.0 g/dL Hematocrit 26.9 % Mean Corpuscular Volume 93.7 fL Mean Corpuscular Hemoglobin 31.4 pg Mean Corpuscular Hemoglobin Concent 33.5 g/dl Platelet Count 126 K/uL Mean Platelet Volume 11.8 fL RDW Standard Deviation 66.8 fL RDW Coefficient of Variation 19.4 % Neutrophils % (Manual) 54.8 % Lymphocytes % (Manual) 24.3 % Monocytes % (Manual) 20.0 % Blast Cells % 0.9 % Neutrophils # (Manual) 0.65 K/uL Total Absolute Neutrophils 0.65 K/uL Lymphocytes # (Manual) 0.29 K/uL Total Absolute Lymphocytes 0.29 K/uL Monocytes # (Manual) 0.24 K/uL Blast Cells # 0.01 K/uL Blood Smear Review Toxic Vacuolation 2+ Dohle Bodies 1+ Large Platelets 2+ Anisocytosis PRESENT Sodium Level 140 mmol/L Potassium Level 3.8 mmol/L Chloride Level 112 mmol/L Carbon Dioxide Level 18 mmol/L Anion Gap 10.0 mmol/L Blood Urea Nitrogen 19 mg/dl Creatinine 1.00 mg/dl Est Creatinine Clear Calc Drug Dose 46.5 ml/min Estimated GFR () 63.4 Estimated GFR (Non- 54.7 BUN/Creatinine Ratio 19.5 Random Glucose 80 mg/dl Calcium Level 8.3 mg/dl Assessment and Plan This is a 75 yo F who presented with neutropenic fever, PMHx includes stage 4 metastatic ovarian cancer. She was recently admitted and discharged on 11/13 to [facility] for neutropenic fever, also being found to have a UTI and treated wtih 7 days of cipro. Pt is on therapeutic lovenox for recent DVT/PE. Neutropenic Fever - Pt remained afebrile overnight, other VSS: - WBC decreased to 1.19 and neutrophils to 0.65. Continue neupogen injections today scheduled daily, with daily CBC with diff to monitor. Would ask that oncology weighs in on this today. - Blood cultures in process- NGTD prelim - UA is slightly dirty, culture- NGTD prelim - Continue vanc and zosyn at this time, pt received 1 dose of levaquin 11/19 in the ED. - During last admission from 11/08-11/13 the patient received neupogen injections daily and Dr. Kwok was consulted. Will ask oncology to consult the patient to determine if salvage therapy would be appropriate at this time. It may also be reasonable to consider no further treatment with chemotherapy if the risks outweight the benefits. Anemia - Hbg remains stable MGUS Elevated Transaminase - likely in relation to malignancy although on the last CT of abdomen/pelvis completed on 10/24 there was no liver or spleen involvement. - Follow am labs Diarrhea - Infectious studies including c. diff, shiga toxin, salmonella, rotavirus, giardia, were sent during last admission and were all negative. DVT/PE - Continue therapeutic lovenox CODE STATUS: DNR Disposition: from home, lives alone, will ask CM to assist with discharge planning.
[2016-11-23 04:33] VITALS: BP 107/68; PULSE 57; TEMP 36.4; O2SAT 98
[2016-11-23 05:54] LABS: MEAN CELL VOLUME 93.6 fL (80-100); MEAN CORPUSCULAR HEMOGLOBIN 31.1 pg (25-34); MEAN CORPUSCULAR HGB CONC 33.2 g/dl (32-36); MEAN PLATELET VOLUME 12.4 fL (7.4-10.4); PLATELET COUNT 133 K/uL (130-400); RED BLOOD COUNT 2.99 M/uL (4.2-5.4); WHITE BLOOD COUNT 1.62 K/uL (4.8-10.8)
[2016-11-23 06:50] LABS: ANISOCYTOSIS PRESENT; BASO % 1.9 %; BASO ABS # 0.03 K/uL (0-0.2); COMPLETE YES; DOHLE BODIES OCCASIONAL; EOS % 0.6 %; LYMPH % 25.3 %; LYMPH ABS # 0.41 K/uL (1.2-3.4); MONO % 32.1 %; NEUT % 40.1 %; OVALOCYTES 1+; TOXIC GRANULATION 1+; VACUOLIZATION 1+
[2016-11-23 06:59] VITALS: BMI 22.5
[2016-11-23 08:05] VITALS: BP 107/67; PULSE 59; TEMP 36.5; O2SAT 98
[2016-11-23] MEDS: MAGNESIUM OXIDE 400 MG TAB PO SCH ×2 (08:20→19:44)
[2016-11-23] MEDS: FILGRASTIM 300 MCG/ML 1 ML VIAL SQ SCH (08:21)
[2016-11-23] MEDS: CHOLESTYRAMINE LIGHT 4 GM PKT PO SCH ×2 (09:33→16:22)
[2016-11-23] MEDS: ENOXAPARIN 60 MG/0.6 ML SYR SQ SCH ×2 (09:33→21:55)
--- NOTE | 2016-11-23 10:26 | Hematology/Oncology Prog Note ---
Hematology/Onc Progress Note Date of Service Nov 23, 2016. Diagnoses Metastatic ovarian cancer Medications Medications Administered Medications (Trade) Dose Ordered Sig/Michael Route Start Time Stop Time Status Last Admin Dose Admin Vancomycin HCl/ Sodium Chloride (Vancomycin Inj/ Nss 250ml) 270 ml @ 125 mls/hr NOW STAT IV 11/19/16 16:34 11/19/16 18:43 DC 11/19/16 17:47 125 MLS/HR Levofloxacin 500 mg 500 mg NOW ONCE IV 11/19/16 16:45 11/19/16 16:46 DC 11/19/16 16:55 500 MG Piperacillin Sod/ Tazobactam Sod/ Dextrose (Zosyn Iv/D5 100ml) 115 ml @ 230 mls/hr TODAY@1645 IV 11/19/16 16:45 11/19/16 19:00 DC 11/19/16 17:11 230 MLS/HR Enoxaparin Sodium (Lovenox Inj) 60 mg Q12H SQ 11/19/16 22:00 12/19/16 21:59 11/23/16 09:33 60 MG Magnesium Oxide (Mag-Ox Tab) 400 mg BID PO 11/19/16 21:00 12/19/16 20:59 11/23/16 08:20 400 MG Filgrastim (Neupogen Sq) 300 mcg NOW STAT SQ 11/19/16 22:07 11/19/16 22:08 DC 11/20/16 00:10 300 MCG Cholestyramine Resin 4 gm 4 gm DAILY@1000 PO 11/20/16 10:00 11/21/16 13:52 DC 11/21/16 10:03 4 GM Sodium Chloride 1,000 ml @ 100 mls/hr Q10H IV 11/19/16 20:45 11/20/16 06:44 DC 11/20/16 00:09 100 MLS/HR Vancomycin HCl 750 mg/Sodium Chloride 265 ml @ 125 mls/hr TODAY@2130 ONCE IV 11/19/16 21:30 11/19/16 23:37 DC 11/19/16 21:37 125 MLS/HR Vancomycin HCl 1050 mg/Sodium Chloride 271 ml @ 125 mls/hr Q18H IV 11/20/16 14:00 11/22/16 10:08 DC 11/22/16 02:44 125 MLS/HR Piperacillin Sod/ Tazobactam Sod/ Dextrose (Zosyn Iv/D5 100ml) 115 ml @ 28.75 mls/ hr Q8@0600,1400,2200 IV 11/19/16 23:00 11/22/16 10:08 DC 11/22/16 06:04 28.75 MLS/HR Heparin Sodium (Porcine) (Heparin 100 Unit/ml 5ml Flush) 5 ml PRN PRN IV 11/20/16 13:15 12/20/16 13:14 11/23/16 05:25 5 ML Filgrastim (Neupogen Sq) 300 mcg QAM SQ 11/21/16 09:00 12/21/16 08:59 11/23/16 08:21 300 MCG Cholestyramine Resin (Questran Powder Light) 4 gm BID17 PO 11/21/16 17:00 12/21/16 16:59 11/23/16 09:33 4 GM Subjective Ms. Blood was sleeping in her chair when I came by. She was arousable, though slowly. She is awaiting disposition. She has no recollection of Dr. Condon and Pauline Be, his CELL TECHNICIAN, coming to speak with her a few days ago. She was quite insistent about it. She apparently has no family and only some friends nearby to help with her care. She has no pain today and denies fevers. Review of Systems: Constitutional: No chills, No fever, No weight loss Eyes: No worsening of vision ENT: No sore throat, No unusual epistaxis Respiratory: No cough, No shortness of breath Cardiovascular: No chest pain, No palpitations Abdomen: No diarrhea, No nausea, No pain, No vomiting Musculoskeletal: No joint pain, No muscle pain Female : No dysuria, No urinary frequency Neurologic: No numbness/tingling, No weakness Heme: No abnormal bleeding/bruising, No swollen lymph nodes Skin: No rash Vital Signs Vital Signs Past 12 Hours Date Time Temp Pulse Resp B/P Pulse Ox O2 Delivery O2 Flow Rate FiO2 11/23/16 08:20 Room Air 11/23/16 08:05 36.5 59 20 107/67 98 11/23/16 04:33 36.4 57 16 107/68 98 Room Air 11/23/16 00:15 Room Air 11/22/16 22:53 36.4 62 17 116/71 99 Room Air Physical Exam Constitutional: General Apperance: too thin (chronically ill appearing) Level of Distress: NAD Head: normocephalic, atraumatic ENMT: pharynx normal Neck: supple Lungs: Auscuitation: breath sounds normal Cardiovascular: Heart Auscultation: RRR, no murmurs Abdomen: Inspection & Palpation: soft, no tenderness, guarding & rebound Extremities: no edema Laboratory Last 24 Hours Test 11/23/16 05:15 White Blood Count 1.62 K/uL Red Blood Count 2.99 M/uL Hemoglobin 9.3 g/dL Hematocrit 28.0 % Mean Corpuscular Volume 93.6 fL Mean Corpuscular Hemoglobin 31.1 pg Mean Corpuscular Hemoglobin Concent 33.2 g/dl Platelet Count 133 K/uL Mean Platelet Volume 12.4 fL Neutrophils (%) (Auto) 40.1 % Lymphocytes (%) (Auto) 25.3 % Monocytes (%) (Auto) 32.1 % Eosinophils (%) (Auto) 0.6 % Basophils (%) (Auto) 1.9 % Neutrophils # (Auto) 0.65 K/uL Lymphocytes # (Auto) 0.41 K/uL Monocytes # (Auto) 0.52 K/uL Eosinophils # (Auto) 0.01 K/uL Basophils # (Auto) 0.03 K/uL RDW Standard Deviation 67.4 fL RDW Coefficient of Variation 19.5 % Immature Granulocyte % (Auto) 0.0 % Immature Granulocyte # (Auto) 0.00 K/uL Toxic Granulation 1+ Toxic Vacuolation 1+ Dohle Bodies OCCASIONAL Anisocytosis PRESENT Ovalocytes 1+ Assessment & Plan Ms. Blood seems confused today. Dr. Condon definitely spoke with her earlier in her stay and ordered her change in code status. I discussed her confusion with Dr. Tinoco, who will see her. Otherwise, she is awaiting disposition. She expressed a desire to at least consider more treatment to Dr. Condon. This is a conversation they can have in the clinic as an outpatient. In the meantime, we could consider a few doses of GCSF to accelerate her WBC recovery prior to discharge. Otherwise, we will sign off for now.
[2016-11-23 11:21] VITALS: BP 122/75; PULSE 64; TEMP 36.3; O2SAT 98
[2016-11-23 15:27] VITALS: BP 114/77; PULSE 71; TEMP 36.4; O2SAT 99
--- NOTE | 2016-11-23 16:57 | Progress Note ---
Subjective Date of Service: Nov 23, 2016. Subjective Pt evaluation today including: conversation w/ patient, physical exam, lab review, conversation w/ data center consultant, review of inpatient medication list Pain: no pain PO Intake: adequate Voiding: no voiding problems denies diarrhea which is a firs for her she had some insight today, realizes that she eats well here in the hospital, at home she has not one to prepare her meals she goes without eating for long periods explained that with cancer diagnosis and plans for further chemo, it would be vital for her to have meals on consistent basis discussed that her independence is important to her, but she will not have much quality of life if she cannot carry out basic needs (food, hygiene) she is open to looking into SNF placement, will ask CM to discuss Problem List Medical Problems: (1) Anemia Status: Acute (2) Change in mental status Status: Acute (3) Fever Status: Acute (4) Neutropenia Status: Acute Review of Systems Constitutional: + fatigue, + weakness All Other Systems: Reviewed and Negative Medications Current Inpatient Medications Medications (Trade) Dose Ordered Sig/Michael Route Start Time Stop Time Status Last Admin Dose Admin Enoxaparin Sodium (Lovenox Inj) 60 mg Q12H SQ 11/19/16 22:00 12/19/16 21:59 11/23/16 09:33 60 MG Magnesium Oxide (Mag-Ox Tab) 400 mg BID PO 11/19/16 21:00 12/19/16 20:59 11/23/16 08:20 400 MG Acetaminophen (Tylenol Tab) 650 mg Q4H PRN PO 11/19/16 20:45 12/19/16 20:44 Al Hydrox/Mg Hydrox/Simethicone (Maalox Max Susp) 15 ml Q4H PRN PO 11/19/16 20:45 12/19/16 20:44 Magnesium Hydroxide (Milk Of Magnesia Susp) 30 ml Q6H PRN PO 11/19/16 20:45 12/19/16 20:44 Ondansetron HCl (Zofran Inj) 4 mg Q6H PRN IV 11/19/16 20:45 12/19/16 20:44 Heparin Sodium (Porcine) (Heparin 100 Unit/ml 5ml Flush) 5 ml PRN PRN IV 11/20/16 13:15 12/20/16 13:14 11/23/16 05:25 5 ML Filgrastim (Neupogen Sq) 300 mcg QAM SQ 11/21/16 09:00 12/21/16 08:59 11/23/16 08:21 300 MCG Cholestyramine Resin (Questran Powder Light) 4 gm BID17 PO 11/21/16 17:00 12/21/16 16:59 11/23/16 16:22 4 GM Loperamide HCl (Imodium Cap) 2 mg Q4 PRN PO 11/21/16 14:00 12/21/16 13:59 Objective Vital Signs Date Time Temp Pulse Resp B/P Pulse Ox O2 Delivery O2 Flow Rate FiO2 11/23/16 15:27 36.4 71 18 114/77 99 11/23/16 15:11 Room Air 11/23/16 11:21 36.3 64 20 122/75 98 11/23/16 08:20 Room Air 11/23/16 08:05 36.5 59 20 107/67 98 11/23/16 04:33 36.4 57 16 107/68 98 Room Air 11/23/16 00:15 Room Air 11/22/16 22:53 36.4 62 17 116/71 99 Room Air 11/22/16 19:27 36.3 62 16 113/68 99 Room Air Physical Exam General Appearance: no apparent distress, + thin Neck: supple, no adenopathy, no JVD, trachea midline Respiratory/Chest: chest non-tender, lungs clear, normal breath sounds, no respiratory distress, no accessory muscle use Cardiovascular: regular rate, rhythm, no edema, no gallop, no JVD, no murmur Abdomen: normal bowel sounds, non tender, soft, no organomegaly Extremities: normal range of motion, non-tender, normal inspection, no pedal edema, no calf tenderness Neurologic/Psychiatric: steam fitter helper II-XII nml as tested, no motor/sensory deficits, alert, normal mood/affect, oriented x 3 Skin: normal color, warm/dry, no rash Laboratory Results Last 24 Hours Test 11/23/16 05:15 White Blood Count 1.62 K/uL Red Blood Count 2.99 M/uL Hemoglobin 9.3 g/dL Hematocrit 28.0 % Mean Corpuscular Volume 93.6 fL Mean Corpuscular Hemoglobin 31.1 pg Mean Corpuscular Hemoglobin Concent 33.2 g/dl Platelet Count 133 K/uL Mean Platelet Volume 12.4 fL Neutrophils (%) (Auto) 40.1 % Lymphocytes (%) (Auto) 25.3 % Monocytes (%) (Auto) 32.1 % Eosinophils (%) (Auto) 0.6 % Basophils (%) (Auto) 1.9 % Neutrophils # (Auto) 0.65 K/uL Lymphocytes # (Auto) 0.41 K/uL Monocytes # (Auto) 0.52 K/uL Eosinophils # (Auto) 0.01 K/uL Basophils # (Auto) 0.03 K/uL RDW Standard Deviation 67.4 fL RDW Coefficient of Variation 19.5 % Immature Granulocyte % (Auto) 0.0 % Immature Granulocyte # (Auto) 0.00 K/uL Toxic Granulation 1+ Toxic Vacuolation 1+ Dohle Bodies OCCASIONAL Anisocytosis PRESENT Ovalocytes 1+ Assessment and Plan This is a 75 yo F who presented with neutropenic fever, PMHx includes stage 4 metastatic ovarian cancer. She was recently admitted and discharged on 11/13 to [facility] for neutropenic fever, also being found to have a UTI and treated wtih 7 days of cipro. Pt is on therapeutic lovenox for recent DVT/PE. Neutropenic Fever - Pt remained afebrile overnight, other VSS: - still neutropenic, appreciate oncology note, going to continue Neupogen until ANC > 1000 - Blood cultures in process- NGTD prelim - UA is slightly dirty, culture- NGTD prelim - stop antibiotics, no fever Anemia - Hbg remains stable MGUS Elevated Transaminase - likely in relation to malignancy although on the last CT of abdomen/pelvis completed on 10/24 there was no liver or spleen involvement. - resolved Diarrhea - Infectious studies including c. diff, shiga toxin, salmonella, rotavirus, giardia, were sent during last admission and were all negative. - resolving with Questran BID, continue this dose, also, use Imodium PRN Ovarian cancer: patient not ready for hospice, wants to follow up with Dr. Hogan to discuss further chemotherapy DVT/PE - Continue therapeutic lovenox CODE STATUS: DNR Disposition: was living independently, very weak, cannot prepare her own meals, issues with hygiene she had insight today, realized that she has three meals a day here and she eats them all, it is nice to have meals she said also, she has assistance with bathing, ambulating she is now open to going to SNF or at least rehab at SNF will ask CM to make referrals and d/w patient
[2016-11-23 20:09] VITALS: BP 119/76; PULSE 67; TEMP 36.5; O2SAT 98
[2016-11-24] VITALS (7 sets, daily range): BP systolic 110–127; BP diastolic 64–73; PULSE 55–70; TEMP 36.3–36.6; O2SAT 93–99
[2016-11-24 05:57] LABS: HEMATOCRIT 28.7 % (37-47); MEAN CELL VOLUME 94.4 fL (80-100); MEAN CORPUSCULAR HEMOGLOBIN 31.6 pg (25-34); MEAN CORPUSCULAR HGB CONC 33.4 g/dl (32-36); MEAN PLATELET VOLUME 12.1 fL (7.4-10.4); PLATELET COUNT 148 K/uL (130-400); RED BLOOD COUNT 3.04 M/uL (4.2-5.4)
[2016-11-24 06:27] LABS: BUN/CREATININE RATIO 23.5 (10-20); CALCIUM 8.7 mg/dl (8.5-10.1); CREATININE 0.97 mg/dl (0.60-1.20); POTASSIUM 4.2 mmol/L (3.5-5.1)
[2016-11-24 07:24] LABS: ANISOCYTOSIS PRESENT; DOHLE BODIES 1+; EOSINOPHIL % 1.8 %; LYMPH ABS # 0.75 K/uL (1.2-3.4); LYMPHOCYTE % 11.4 %; MYELOCYTE % 0.9 %; NEUTROPHILS % 79.7 %; TEAR DROP CELLS 1+; TOXIC GRANULATION 1+; VACUOLIZATION 1+
[2016-11-24 07:56] LABS: COMPLETE YES
[2016-11-24] MEDS: CHOLESTYRAMINE LIGHT 4 GM PKT PO SCH ×2 (08:49→17:11)
[2016-11-24] MEDS: FILGRASTIM 300 MCG/ML 1 ML VIAL SQ SCH (08:57)
--- NOTE | 2016-11-24 08:59 | Progress Note ---
Subjective Date of Service: Nov 24, 2016. Subjective Pt evaluation today including: conversation w/ patient, physical exam, chart review, lab review, review of studies, conversation w/ health management consultant, review of inpatient medication list Voiding: no voiding problems Was out of bed, feeling good, eating/voiding normally, no complaining, no fever and chill Problem List Medical Problems: (1) Anemia Status: Acute (2) Change in mental status Status: Acute (3) Fever Status: Acute (4) Neutropenia Status: Acute Review of Systems Constitutional: + fatigue, No chills, No fever, No problem reported, No sweats , No weakness, No weight loss Eyes: No diplopia, No discharge, No eye pain, No redness, No worsening of vision ENT: No dental problems, No hearing loss, No nasal symptoms, No sore throat, No tinnitus, No trouble swallowing, No unusual epistaxis Respiratory: No cough, No dyspnea at rest, No dyspnea on exertion, No hemoptysis, No shortness of breath, No sputum, No wheezing Cardiac: No PND, No chest pain, No claudication, No edema, No orthopnea, No palpitations Abdomen: No constipation, No diarrhea, No nausea, No pain, No vomiting Musculoskeletal: No calf pain, No joint pain, No muscle pain, No swelling Female : No abnormal vaginal bleeding, No dysuria, No hematuria, No incontinence, No urinary frequency, No vaginal discharge Neurologic: No balance problems, No memory loss, No numbness/tingling, No paralysis, No vertigo, No weakness Psychiatric: No anhedonism, No anxiety, No depression symptoms, No insomnia, No substance abuse Heme: No abnormal bleeding/bruising, No clotting problems, No night sweats, No swollen lymph nodes Endo: No excessive thirst, No excessive urination, No fatigue Skin: No bleeding, No color change, No itch, No new/changing skin lesions, No rash Objective Vital Signs Date Time Temp Pulse Resp B/P Pulse Ox O2 Delivery O2 Flow Rate FiO2 11/24/16 07:27 36.6 55 18 114/64 99 Room Air 11/24/16 04:40 36.5 70 16 111/73 98 Room Air 11/24/16 00:18 36.5 62 16 113/70 99 Room Air 11/23/16 23:59 Room Air 11/23/16 20:09 36.5 67 16 119/76 98 Room Air 11/23/16 20:00 Room Air 11/23/16 15:27 36.4 71 18 114/77 99 11/23/16 15:11 Room Air 11/23/16 11:21 36.3 64 20 122/75 98 Physical Exam General Appearance: WD/WN, no apparent distress, + thin Eyes: normal inspection, PERRL, EOMI, sclerae normal ENT: normal ENT inspection, hearing grossly normal, pharynx normal Neck: supple, no adenopathy, thyroid normal, no JVD, no carotid bruits, trachea midline Respiratory/Chest: chest non-tender, lungs clear, normal breath sounds, no respiratory distress, no accessory muscle use, + decreased breath sounds Cardiovascular: regular rate, rhythm, no edema, no gallop, no JVD, no murmur Abdomen: normal bowel sounds, non tender, soft, no organomegaly, no pulsatile mass Extremities: normal range of motion, non-tender, normal inspection, no pedal edema, no calf tenderness, normal capillary refill, pelvis stable Neurologic/Psychiatric: deliverer merchandise II-XII nml as tested, no motor/sensory deficits, alert, normal mood/affect, oriented x 3 Skin: normal color, warm/dry, no rash Lymphatic: no adenopathy Laboratory Results Last 24 Hours Test 11/24/16 05:35 White Blood Count 6.60 K/uL Red Blood Count 3.04 M/uL Hemoglobin 9.6 g/dL Hematocrit 28.7 % Mean Corpuscular Volume 94.4 fL Mean Corpuscular Hemoglobin 31.6 pg Mean Corpuscular Hemoglobin Concent 33.4 g/dl Platelet Count 148 K/uL Mean Platelet Volume 12.1 fL RDW Standard Deviation 69.1 fL RDW Coefficient of Variation 19.9 % Neutrophils % (Manual) 79.7 % Lymphocytes % (Manual) 11.4 % Monocytes % (Manual) 5.3 % Eosinophils % (Manual) 1.8 % Myelocytes % 0.9 % Promyelocytes % 0.9 % Neutrophils # (Manual) 5.26 K/uL Total Absolute Neutrophils 5.26 K/uL Lymphocytes # (Manual) 0.75 K/uL Total Absolute Lymphocytes 0.75 K/uL Monocytes # (Manual) 0.35 K/uL Eosinophils # (Manual) 0.12 K/uL Myelocytes # 0.06 K/uL Promyelocytes # 0.06 K/uL Toxic Granulation 1+ Toxic Vacuolation 1+ Dohle Bodies 1+ Anisocytosis PRESENT Tear Drop Cells 1+ Sodium Level 142 mmol/L Potassium Level 4.2 mmol/L Chloride Level 113 mmol/L Carbon Dioxide Level 18 mmol/L Anion Gap 11.0 mmol/L Blood Urea Nitrogen 23 mg/dl Creatinine 0.97 mg/dl Est Creatinine Clear Calc Drug Dose 48.0 ml/min Estimated GFR () 65.8 Estimated GFR (Non- 56.7 BUN/Creatinine Ratio 23.5 Random Glucose 77 mg/dl Calcium Level 8.7 mg/dl Assessment and Plan 75 yo F who was admitted on 11/19/2016 with neutropenic fever, PMHx includes stage 4 metastatic ovarian cancer. She was recently admitted and discharged on 11/13 to [facility] for neutropenic fever, also being found to have a UTI and treated wtih 7 days of cipro. Pt is on therapeutic lovenox for recent DVT/PE. Neutropenic Fever, resolved Last fever was more than 3 days s ago -Was neutropenic, appreciate oncology note, has been on Neupogen until ANC > 1000, will discussed with Dr. LAM to discontinue Neupogen are not - Blood cultures in process- NGTD prelim - UA is slightly dirty, culture- NGTD prelim - stop antibiotics, no fever Anemia - Hbg remains stable MGUS Elevated Transaminase - likely in relation to malignancy although on the last CT of abdomen/pelvis completed on 10/24 there was no liver or spleen involvement. - resolved Diarrhea - Infectious studies including c. diff, shiga toxin, salmonella, rotavirus, giardia, were sent during last admission and were all negative. - resolving with Questran BID, continue this dose, also, use Imodium PRN Ovarian cancer: patient not ready for hospice, wants to follow up with Dr. Hogan to discuss further chemotherapy DVT/PE - Continue therapeutic lovenox CODE STATUS: DNR Disposition: was living independently, now very weak, cannot prepare her own meals, issues with hygiene She is agreed to going to SNF or at least rehab at SNF Has talked to nurse, patient is ready to discharge to retirement if that available Continued [facility] stay due to: home environment unsafe for pt Discharge planning: [facility]pc facility
[2016-11-24] MEDS ORDERED: NURSING VERBAL MED ORDER ONE (09:00)
[2016-11-24] MEDS: ENOXAPARIN 60 MG/0.6 ML SYR SQ SCH ×2 (10:45→20:45)
[2016-11-24] MEDS: MAGNESIUM OXIDE 400 MG TAB PO SCH ×2 (10:45→20:14)
[2016-11-25 04:00] VITALS: BP 131/66; PULSE 62; TEMP 36.5; O2SAT 99
[2016-11-25 06:39] VITALS: Ht 170.2 cm; Wt 63.1 kg
[2016-11-25 07:33] VITALS: BP 123/77; PULSE 68; TEMP 36.3; O2SAT 97
[2016-11-25] MEDS: MAGNESIUM OXIDE 400 MG TAB PO SCH (07:48)
[2016-11-25 08:00] VITALS: O2SAT 97
[2016-11-25] MEDS: CHOLESTYRAMINE LIGHT 4 GM PKT PO SCH (09:26)
[2016-11-25] MEDS: ENOXAPARIN 60 MG/0.6 ML SYR SQ SCH (09:27)
--- NOTE | 2016-11-25 09:31 | Discharge Instructions ---
Discharge Instructions Admission Reason for Admission: Neutropenic Fever Discharge Discharge Diagnosis / Problem: neutropenic fever, Discharge Goals Goal(s): Decrease discomfort, Improve function, Increase independence, Improve disease control, Improve nutritional status, Learn about illness, Diagnostic testing, Therapeutic intervention, Prevent Disease Progression, Specific goals Activity Recommendations Activity Level: OOB In Chair Therapies: Physical Therapy, Occupational Therapy Exercise/Sports Limitations: as tolerated Shower/Bathe: no limitations . Additional Information Patient informed of condition: Yes Advance Directives: Yes DNR: Yes Level of Care: Skilled Communicable Disease: No Prognosis: Deteriorating (because of ovarian cancer) Instructions / Follow-Up Instructions / Follow-Up you was admitted with neutropenic fever, you have stage 4 metastatic ovarian cancer. you need to follow up with Dr. Hogan to discuss further chemotherapy in 7-10 days You need to follow up with your primary care physician in 7-10 days for further plan - take medication as instructed, never overdose or any misuse, or take with alcohol, because misuse of medicine may cause organ damage or , call your primary care physician if have questions of medicaitons. - call your primary care physician OR go to local emergency room if has any fever/chill, chest pain, shortness of breathing, nausea/vomiting/abdominal pain , facial droop/slurry speech/local weakness, or if has any questions. - fall precaution - diet as instructed - you need to follow up with your subspecialist - you should understand that it is important to follow up the above instruction , and "not following the above instruction" may cause delayed or missed care of your medical conditions which may cause permanent organ damage and even . Current Hospital Diet Patient's current hospital diet: Regular Diet Discharge Diet Recommended Diet: Regular Diet Pending Studies Studies pending at discharge: no Physician Orders On Transfer POLST Discussion: without POLST completion Medical Emergencies . Who to Call and When: Medical Emergencies: If at any time you feel your situation is an emergency, please call 911 immediately. . Non-Emergent Contact Non-Emergency issues call your: Primary Care Provider . . "Provider Documentation" section prepared by Corwin Tejeda. Core Measure Problem Core Measures: None
--- NOTE | 2016-11-25 09:43 | Discharge Summary ---
Discharge Summary Admission Date: Nov 19, 2016 at 20:35 Discharge Date: Nov 25, 2016 Discharge Disposition: senior care facility Principal Diagnosis: neutropenic fever, Problems/Secondary Diagnoses: neutropenic fever, stage 4 metastatic ovarian cancer. Immunizations: Have You Had Influenza Vaccine: N/A History of Tetanus Vaccine?: Yes History of Pneumococcal: No History of Hepatitis B Vaccine: Unknown Consultations: Oncologist Medication Reconciliation Continued Medications: Cholestyramine (Cholestyramine Light) 4 Gm Pack 4 GM PO DAILY@1000, #14 0 Refills Enoxaparin (Lovenox) 60 Mg/0.6 Ml Inj 60 MG SQ Q12H, SYR Magnesium Oxide (Magnesium-Oxide) 400 Mg Tab 400 MG PO BID for 5 Days, TAB 0 Refills Discontinued Medications: Nystatin (Nystatin Suspension) 1 Ml Susp 5 ML PO QID for 5 Days, 0 Refills Discharge Exam Feeling better, out of bed to the chair, conversational, Review of Systems: Constitutional: + fatigue, + weakness, No chills, No fever, No problem reported, No sweats, No weight loss Eyes: No diplopia, No discharge, No eye pain, No problem reported, No redness, No worsening of vision ENT: No dental problems, No hearing loss, No nasal symptoms, No problem reported, No sore throat, No tinnitus, No trouble swallowing, No unusual epistaxis Respiratory: No cough, No dyspnea at rest, No dyspnea on exertion, No hemoptysis, No problem reported, No shortness of breath, No sputum, No wheezing Cardiovascular: No PND, No chest pain, No claudication, No edema, No orthopnea, No palpitations, No problem reported Abdomen: No GI bleeding, No constipation, No diarrhea, No nausea, No pain, No problem reported, No vomiting Musculoskeletal: No calf pain, No joint pain, No muscle pain, No problem reported, No swelling Genitourinary - Female: No dysmenorrhea, No dysuria, No hematuria, No menorrhagia, No metrorrhagia, No , No problem reported, No rash, No urinary frequency, No urinary incontinence, No urinary retention, No urinary urgency, No vaginal bleeding, No vaginal discharge, No vaginal itching, No vulvodynia Neurologic: + memory loss, No balance problems, No numbness/tingling, No paralysis, No problem reported, No vertigo, No weakness Psychiatric: No anhedonism, No anxiety, No depression symptoms, No insomnia , No problem reported, No substance abuse Endocrine: + fatigue Hematologic / Lymphatic: No abnormal bleeding/bruising, No clotting problems , No night sweats, No problem reported, No swollen lymph nodes Integumentary: No bleeding, No color change, No itch, No new/changing skin lesions, No problem reported, No rash Physical Exam: General Appearance: WD/WN, no apparent distress, + cachetic, + thin Eyes: normal inspection, PERRL ENT: normal ENT inspection, hearing grossly normal Neck: supple, no adenopathy Respiratory/Chest: chest non-tender, no respiratory distress, no accessory muscle use, + decreased breath sounds Cardiovascular: regular rate, rhythm, no edema, no gallop Abdomen / GI: normal bowel sounds, non tender, no organomegaly, no pulsatile mass Extremities: normal inspection, no calf tenderness, normal capillary refill Neurologic/Psychiatric: gamemaster II-XII nml as tested, no motor/sensory deficits , alert, normal mood/affect Skin: normal color, warm/dry Hospital Course 75 yo F who was admitted on 11/19/2016 with neutropenic fever, PMHx includes stage 4 metastatic ovarian cancer. She was recently admitted and discharged on 11/13 to [facility] for neutropenic fever, also being found to have a UTI and treated wtih 7 days of cipro. Pt is on therapeutic lovenox for recent DVT/PE. Neutropenic Fever, resolved Last fever was more than 5 days s ago -Was neutropenic, appreciate oncology note, has been on Neupogen until ANC > 1000, was on new post Neupogen which was discontinued - Blood cultures in process- NGTD prelim - UA is slightly dirty, culture- NGTD prelim - stop antibiotics, no fever Anemia - Hbg remains stable MGUS Elevated Transaminase - likely in relation to malignancy although on the last CT of abdomen/pelvis completed on 10/24 there was no liver or spleen involvement. - resolved Diarrhea resolved - Infectious studies including c. diff, shiga toxin, salmonella, rotavirus, giardia, were sent during last admission and were all negative. - resolving with Questran BID, continue this dose, also, use Imodium PRN Ovarian cancer: patient not ready for hospice, wants to follow up with Dr. Hogan to discuss further chemotherapy DVT/PE - Continue therapeutic lovenox will continue CODE STATUS: DNR Disposition: was living independently, now very weak, cannot prepare her own meals, issues with hygiene She is agreed to going to SNF or at least rehab at SNF, now is going to [facility] Patient has no family in this country, I offered to talk to her listed contact her friend, she said no, Patient was seen by palliative care, continue DO NOT INTUBATE DO NOT RESUSCITATE , but patient not ready for hospice care yet, Possible high risk of readmission because the goal on the care is not sure from patient side, and patient is to have end-stage cancer disease, I have requested palliative care to talk to patient again about wishes, to fill out the polst form as much as possible, which will help for the future care plan nstructions / Follow-Up you was admitted with neutropenic fever, you have stage 4 metastatic ovarian cancer. you need to follow up with Dr. Hogan to discuss further chemotherapy in 7-10 days You need to follow up with your primary care physician in 7-10 days for further plan - take medication as instructed, never overdose or any misuse, or take with alcohol, because misuse of medicine may cause organ damage or , call your primary care physician if have questions of medicaitons. - call your primary care physician OR go to local emergency room if has any fever/chill, chest pain, shortness of breathing, nausea/vomiting/abdominal pain , facial droop/slurry speech/local weakness, or if has any questions. - fall precaution - diet as instructed - you need to follow up with your subspecialist - you should understand that it is important to follow up the above instruction , and "not following the above instruction" may cause delayed or missed care of your medical conditions which may cause permanent organ damage and even . This includes examination of the patient, discharge planning, medication reconciliation, and communication with other providers. Discharge Instructions Please refer to the electronic Patient Visit Report (Discharge Instructions) for additional information. Additional Copies To Ranjeet Granado M.D.; Brendan Condon D.O.
--- NOTE | 2016-11-25 10:09 | Hematology/Oncology Prog Note ---
Hematology/Onc Progress Note Date of Service Nov 25, 2016. Diagnoses Refractory ovarian carcinoma Medications Medications Administered Medications (Trade) Dose Ordered Sig/Michael Route Start Time Stop Time Status Last Admin Dose Admin Vancomycin HCl/ Sodium Chloride (Vancomycin Inj/ Nss 250ml) 270 ml @ 125 mls/hr NOW STAT IV 11/19/16 16:34 11/19/16 18:43 DC 11/19/16 17:47 125 MLS/HR Levofloxacin 500 mg 500 mg NOW ONCE IV 11/19/16 16:45 11/19/16 16:46 DC 11/19/16 16:55 500 MG Piperacillin Sod/ Tazobactam Sod/ Dextrose (Zosyn Iv/D5 100ml) 115 ml @ 230 mls/hr TODAY@1645 IV 11/19/16 16:45 11/19/16 19:00 DC 11/19/16 17:11 230 MLS/HR Enoxaparin Sodium (Lovenox Inj) 60 mg Q12H SQ 11/19/16 22:00 12/19/16 21:59 11/25/16 09:27 60 MG Magnesium Oxide (Mag-Ox Tab) 400 mg BID PO 11/19/16 21:00 12/19/16 20:59 11/25/16 07:48 400 MG Filgrastim (Neupogen Sq) 300 mcg NOW STAT SQ 11/19/16 22:07 11/19/16 22:08 DC 11/20/16 00:10 300 MCG Cholestyramine Resin 4 gm 4 gm DAILY@1000 PO 11/20/16 10:00 11/21/16 13:52 DC 11/21/16 10:03 4 GM Sodium Chloride 1,000 ml @ 100 mls/hr Q10H IV 11/19/16 20:45 11/20/16 06:44 DC 11/20/16 00:09 100 MLS/HR Vancomycin HCl 750 mg/Sodium Chloride 265 ml @ 125 mls/hr TODAY@2130 ONCE IV 11/19/16 21:30 11/19/16 23:37 DC 11/19/16 21:37 125 MLS/HR Vancomycin HCl 1050 mg/Sodium Chloride 271 ml @ 125 mls/hr Q18H IV 11/20/16 14:00 11/22/16 10:08 DC 11/22/16 02:44 125 MLS/HR Piperacillin Sod/ Tazobactam Sod/ Dextrose (Zosyn Iv/D5 100ml) 115 ml @ 28.75 mls/ hr Q8@0600,1400,2200 IV 11/19/16 23:00 11/22/16 10:08 DC 11/22/16 06:04 28.75 MLS/HR Heparin Sodium (Porcine) (Heparin 100 Unit/ml 5ml Flush) 5 ml PRN PRN IV 11/20/16 13:15 12/20/16 13:14 11/23/16 05:25 5 ML Filgrastim (Neupogen Sq) 300 mcg QAM SQ 11/21/16 09:00 12/21/16 08:59 Future Hold 11/23/16 08:21 300 MCG Cholestyramine Resin (Questran Powder Light) 4 gm BID17 PO 11/21/16 17:00 12/21/16 16:59 11/25/16 09:26 4 GM Subjective She sees be doing fairly well currently. She denies new pain. She is afebrile. Review of Systems: Constitutional: Negative for weight loss, night sweats, or fever Eyes: Negative for event change of vision ENT: Negative for epistaxis, nasal discharge, sore throat, or deafness Cardiovascular: Negative for chest pain, palpitations, dizziness, diaphoresis Respiratory: Negative for new shortness of breath,hemoptysis, or purulent cough Gastrointestinal: Negative for diarrhea, hematemesis, melena, nausea, vomiting , or dyspepsia Integumentary (skin): Negative for rash or jaundice discoloration Genitourinary: Negative for urinary frequency, hematuria, or dysuria Neurological: Negative for weakness, seizure activity, headache, or dizziness Lymphatic/Hematologic: Negative for petechiae, bleeding or new adenopathy Musculoskeletal: Negative for new joint or back pain Allergic/Immunologic: Negative for unusual rash or pruritis. Vital Signs Vital Signs Past 12 Hours Date Time Temp Pulse Resp B/P Pulse Ox O2 Delivery O2 Flow Rate FiO2 11/25/16 08:00 97 Room Air 11/25/16 07:33 36.3 68 16 123/77 97 Room Air 11/25/16 04:00 36.5 62 18 131/66 99 Room Air 11/25/16 00:00 Room Air 11/24/16 23:27 36.6 59 18 127/69 99 Room Air Physical Exam Constitutional: vitals are stable. Eyes: Eyes are ARABELLA EOMI without conjuctival erythema or icterus. ENT: External examination was negative for masses. Neck: Negative for masses or palpable thyromegaly Respiratory: Lung sounds were generally clear bilaterally Cardiovascular: Heart was RRR without significant murmur, gallops aoe rubs Gastrointestinal: No palpable hepatic or splenomegaly. The abdomen was soft with normal bowel sounds. Lymphatic system: there was no palpable peripheral lymphadenopathy Musculoskeletal System: The musculoskeletal system seemed concordant with age. Skin: The skin was negative for jaundice. Neurologic exam: The exam was negative for any focal findings. Deep tendon reflexes were equal and symmetrical. Psychiatric exam: Was essentially negative with normal mood and effect. Breast exam: Not done Extremities: Negative for edema erythema Constitutional: General Apperance: too thin (chronically ill appearing) Level of Distress: NAD Head: normocephalic, atraumatic ENMT: pharynx normal Neck: supple Lungs: Auscuitation: breath sounds normal Cardiovascular: Heart Auscultation: RRR, no murmurs Abdomen: Inspection & Palpation: soft, no tenderness, guarding & rebound Extremities: no edema Assessment & Plan She seems to be doing rather well. However as stated in prior oncology notes I believe the benefits of further chemotherapy are less than the risks associated with further chemotherapy. She was told that today. I suggested that it might be time now to pursue hospice and supportive care and forego further chemotherapy. She was very willing to hear about hospice and I believe hospice should now be consulted. She will have a follow-up in our clinic with Dr. Condon in the near future but for now I think a hospice approach would be warranted.
[2016-11-25 11:32] VITALS: BP 117/75; PULSE 67; O2SAT 99
[2016-11-25 11:42] VITALS: BP 117/75; PULSE 67; TEMP 36.3; O2SAT 99
--- NOTE | 2016-11-25 13:14 | Palliative Care Progress Note ---
Palliative Care Progress Note Date of Service Nov 25, 2016. Subjective Pt evaluation today including: conversation w/ patient, physical exam, chart review, conversation w/ information services consultant (Dr. Tejeda) Pain: 0 PO Intake: tolerating diet Voiding: no voiding problems Met with patient today before discharge to go over POLST form. Denies pain or discomfort Ambulating with assistance No other complaints Review of Systems All Other Systems: Reviewed and Negative Objective Vital Signs Date Time Temp Pulse Resp B/P Pulse Ox O2 Delivery O2 Flow Rate FiO2 11/25/16 11:42 36.3 67 14 99 Room Air 11/25/16 11:32 67 14 117/75 99 Room Air 11/25/16 08:00 97 Room Air 11/25/16 07:33 36.3 68 16 123/77 97 Room Air 11/25/16 04:00 36.5 62 18 131/66 99 Room Air 11/25/16 00:00 Room Air 11/24/16 23:27 36.6 59 18 127/69 99 Room Air 11/24/16 21:13 36.3 60 16 111/70 99 Room Air 11/24/16 20:00 Room Air 11/24/16 16:00 Room Air 11/24/16 14:43 36.4 58 20 126/70 99 Room Air Physical Exam General Appearance: no apparent distress Neck: no JVD, trachea midline Respiratory/Chest: no respiratory distress, no accessory muscle use, + pertinent finding (room air) Cardiovascular: regular rate, rhythm, no edema, + normal peripheral pulses Abdomen: normal bowel sounds, non tender, soft Neurologic/Psychiatric: alert, normal mood/affect, oriented x 3 Assessment and Plan Problem list: Weakness Neutropenic fever Anemia MGUS Elevated Transaminase Diarrhea DVT/PE Ovarian cancer Goals of care Palliative care plan: Transfer to [facility] today. Uncertain of long-term placement, patient will be unable to go home alone. POLST form completed: DNR/DNI, limited additional medical interventions, antibiotics if life can be prolonged, no artificial feeding but IVF okay, goal is to live as long as possible and as comfortably as possible. If there is further option for treatment of cancer, she is willing to do so. She will follow up with oncology as outpatient. Dr. Tejeda updated and signed POLST form. Copy made for chart, original with patient. Palliative Performance Scale: 70 % [facility]charge planning: [facility]
[2016-12-04] MEDS ORDERED: ACET-1311 PO (12:42)
== END 2016-11-25 13:02 | DRG 809 ==
LOC: ENRESERVDT → ENRESERVTM → EDBD 15:48 → C.EDA 15:49 → UNDOADMIN 20:35 → C.4E 20:35 → EDBEDREQ 20:40
PROVIDERS: ADMIT Internal Medicine; ATTEND Hospitalist
DX: D70.9 Neutropenia, unspecified (principal); N39.0 Urinary tract infection, site not specified; C56.9 Malignant neoplasm of unspecified ovary; R50.81 Fever presenting with conditions classified elsewhere; Z86.718 Personal history of other venous thrombosis and embolism; Z79.01 Long term (current) use of anticoagulants; Z86.711 Personal history of pulmonary embolism; Z51.5 Encounter for palliative care; D47.2 Monoclonal gammopathy; R74.0 Nonspecific elevation of levels of transaminase and lactic acid dehydrogenase [LDH]; R19.7 Diarrhea, unspecified; Z66 Do not resuscitate; D64.9 Anemia, unspecified

== ENCOUNTER → 2017-01-23 | Outpatient (CLI) | payer OTHER, BC ==
[~2017-01-23] MED LIST changes: +ACET-1311 PO; +ENOX60IN SQ; +FNTTP25 TD; -LVNIS80 SQ; -NYSS/ PO; +OXYC-57 PO
[2017-01-23 09:16] LABS: URINE APPEARANCE CLEAR (CLEAR); URINE BILIRUBIN NEG (NEG); URINE COLOR YELLOW; URINE EPITHELIAL CELL AUTO 0-5 /lpf (0-5); URINE NITRITE NEG (NEG); URINE SPECIFIC GRAVITY 1.007 (1.000-1.030); UROBILINOGEN NEG (NEG); ZZUR CULT IF INDIC CLEAN CATCH NO
[2017-01-23 09:17] LABS: MANUAL MICROSCOPIC REQUIRED? NO; REVIEW REQ? NO
== END ==
LOC: C.LABUPNIT 08:28
PROVIDERS: ATTEND Family Medicine
DX: N39.0 Urinary tract infection, site not specified (principal)

== ENCOUNTER → 2017-02-26 | Outpatient (CLI) | payer OTHER, BC ==
--- NOTE | 2017-03-27 06:34 | CODING QUERY MEDICAL NECESSITY ---
CQSUPPORTING DIAGNOSIS NEEDED A supporting diagnosis is required for the test/procedure performed on this patient in order for us to be reimbursed by the patient's insurance. Please provide a supporting diagnosis for the following test/procedure listed below next to the test name along with your signature. *If there is no additional diagnosis for this patient that would support the following test/procedure please document that below next to the test/procedure. Test(s)/Procedure(s) that require a supporting diagnosis: DOS 02/26/17 VITAMIN B12 TEST FOLIC ACID TEST Provider Signature: Date: Thank you Hilda Bolton Health Information Management Once completed, please kindly fax back to [phone] For questions please call [phone]
== END ==
LOC: C.LABUPNIT 09:29
PROVIDERS: ATTEND Family Medicine
DX: C56.9 Malignant neoplasm of unspecified ovary (principal)

== ENCOUNTER 2017-03-24 16:01 | Inpatient (IN) | payer OTHER, BC ==
[~2017-03-24] VITALS: Ht 172.7 cm; Wt 58.7 kg
[~2017-03-24 16:01] MED LIST changes: -FNTTP25 TD; -OXYC-57 PO
[2017-03-24 17:00] VITALS: BP 124/76; PULSE 88; TEMP 36.8; O2SAT 100
[2017-03-24] MEDS ORDERED: MoRPHine SULFATE 4 MG/ML 1 ML CARP\\VIAL IV STA (17:16)
[2017-03-24] MEDS ORDERED: ONDANSETRON INJ 2 MG/ML 2 ML VIAL IV PRN ×2 (17:30→18:15)
[2017-03-24] MEDS ORDERED: ALUMINUM/MAGNESIUM/SIMETH (MAALOX MAX) 30 ML UDC PO PRN (18:15)
[2017-03-24] MEDS ORDERED: PROCHLORPERAZINE INJ 5 MG in SYRINGE 4 ML IV PRN (18:15)
[2017-03-24] MEDS ORDERED: MAGNESIUM HYDROXIDE SUSP 30 ML UDC PO PRN (18:15)
[2017-03-24] MEDS ORDERED: ACETAMINOPHEN 325 MG TAB PO PRN (18:15)
[2017-03-24] MEDS ORDERED: POLYETHYLENE (MIRALAX) 17 GM PACK PO PRN (18:15)
[2017-03-24] MEDS ORDERED: MoRPHine SULFATE 5 MG/0.25 ML UDP PO PRN (18:15)
[2017-03-24] MEDS ORDERED: MoRPHine SULFATE 4 MG/ML 1 ML CARP\\VIAL IV PRN (18:15)
[2017-03-24 19:00] LABS: HEMATOCRIT 28.2 % (37-47); MEAN CELL VOLUME 81.3 fL (80-100); MEAN CORPUSCULAR HEMOGLOBIN 25.4 pg (25-34); MEAN CORPUSCULAR HGB CONC 31.2 g/dl (32-36); MEAN PLATELET VOLUME 10.4 fL (7.4-10.4); PLATELET COUNT 359 K/uL (130-400); RED BLOOD COUNT 3.47 M/uL (4.2-5.4)
[2017-03-24 19:14] LABS: INR 1.1 (0.9-1.1); PARTIAL THROMBOPLASTIN RATIO 1.1
[2017-03-24 19:15] LABS: CREATININE 0.78 mg/dl (0.60-1.20)
[2017-03-24 19:40] VITALS: BP 112/54; PULSE 71; TEMP 36.7; O2SAT 98
[2017-03-24] MEDS ORDERED: PATIENT'S HEIGHT AND/OR WEIGHT NEEDED SCH (20:30)
[2017-03-24] MEDS: MAGNESIUM OXIDE 400 MG TAB PO SCH (20:38)
[2017-03-24 20:41] VITALS: BMI 20.1
--- NOTE | 2017-03-24 21:20 | History and Physical ---
History & Physical Date & Time of Service: March 24, 2017 at 21:19 Chief Complaint: Intractible Pain, Metastatic Ovarian Ca Primary Care Physician: Christopher Hidalgo Past Medical/Surgical History Medical Problems: (1) Constipation Status: Resolved (2) MGUS (monoclonal gammopathy of unknown significance) Status: Chronic (3) Ovarian cancer Status: Chronic Surgical Problems: (1) History of appendectomy Status: Chronic (2) History of hysterectomy Status: Chronic (3) History of tonsillectomy Status: Chronic Family History Diabetes mellitus FH: cancer FH: gallbladder disease Social History Smoking Status: Unknown if Ever Smoked Drug Use: none Marital Status: single Housing status: lives alone Occupational Status: retired Immunizations History of Influenza Vaccine: N/A History of Tetanus Vaccine?: Yes History of Pneumococcal: No History of Hepatitis B Vaccine: Unknown Multi-Drug Resistant Organisms History of MDRO: No Allergies Coded Allergies: Sulfa Antibiotics (Verified Allergy, Mild, UNKNOWN, 12/04/16) Codeine (Verified Allergy, Unknown, `, 12/04/16) Rabies Vaccine (Verified Allergy, Unknown, "can't remember", 12/04/16) Tetanus Toxoid (Verified Allergy, Unknown, ?, 12/04/16) Home Medications Scheduled Acetaminophen (Tylenol), 650 MG PO Q6 Cholestyramine (Cholestyramine Light), 4 GM PO DAILY@1000 Enoxaparin (Lovenox), 60 MG SQ Q12H Magnesium Oxide (Magnesium-Oxide), 400 MG PO BID Physical Exam Vital Signs Date Time Temp Pulse Resp B/P Pulse Ox O2 Delivery O2 Flow Rate FiO2 03/24/17 19:40 36.7 71 22 112/54 98 Room Air 03/24/17 19:30 Room Air 03/24/17 17:01 Room Air 03/24/17 17:00 36.8 88 22 124/76 100 Room Air Diagnostics Laboratory Results Results Past 24 Hours Test 03/24/17 18:50 Range/Units White Blood Count 13.50 4.8-10.8 K/uL Red Blood Count 3.47 4.2-5.4 M/uL Hemoglobin 8.8 12.0-16.0 g/dL Hematocrit 28.2 37-47 % Mean Corpuscular Volume 81.3 80-100 fL Mean Corpuscular Hemoglobin 25.4 25-34 pg Mean Corpuscular Hemoglobin Concent 31.2 32-36 g/dl RDW Standard Deviation 47.6 36.4-46.3 fL RDW Coefficient of Variation 15.9 11.5-14.5 % Platelet Count 359 130-400 K/uL Mean Platelet Volume 10.4 7.4-10.4 fL Prothrombin Time 12.0 9.0-12.0 SECONDS Prothromb Time International Ratio 1.1 0.9-1.1 Activated Partial Thromboplast Time 28.4 21.0-31.0 SECONDS Partial Thromboplastin Ratio 1.1 Creatinine 0.78 0.60-1.20 mg/dl Estimated GFR () 85.0 Estimated GFR (Non- 73.3 Impression Assessment and Plan admit #[id number] Advanced Directives Existing Living Will: Yes Existing Power of Program Analyst: Yes VTE Prophylaxis VTE Risk Assessment Done? Y/N: Yes Risk Level: Moderate
[2017-03-24] MEDS: ENOXAPARIN 60 MG/0.6 ML SYR SQ SCH (21:24)
--- NOTE | 2017-03-24 22:20 | HISTORY & PHYSICAL EXAMINATION ---
DATE OF ADMISSION: 03/24/2017 CHIEF COMPLAINT: Abdominal pain. HISTORY OF PRESENT ILLNESS: The patient is a pleasant, somewhat confused 76-year-old female sent as a direct admission from Dr. Condon in the oncology office. He had seen her earlier today. She was struggling. She was having a decent amount of pain. Her friends noted that her pain control recently has been inadequate and to get better control of the pain, he asked her if we would admit her for further evaluation and treatment. She seems to be a bit confused. Denies pain to me and then notes that she has got right groin pain. Denies nausea. REVIEW OF SYSTEMS: Fairly unreliable, but negative as best can be ascertained, except for as above. 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 PAST SURGICAL HISTORY: Appendectomy, hysterectomy, tonsillectomy. ALLERGIES: CODEINE, RABIES VACCINE, SULFA, TETANUS TOXOID. FAMILY HISTORY: Diabetes, cancer, gallbladder disease. SOCIAL HISTORY: Currently living at [facility], does not smoke or drink. MEDICATIONS: Tylenol 650 q. 6h., p.r.n. pain, cholestyramine 4 grams daily, Lovenox 60 mg q. 12h., Mag-Ox 400 mg b.i.d. is what is listed in her home meds. She is not really able to confirm. ASSESSMENT AND PLAN: 1. Metastatic ovarian cancer with intractable abdominal pain. She was admitted for the abdominal pain. Her confusion seems to make it a little bit more difficult to tell and certainly, talking with her friends, she is very stoic at baseline, but at this point, certainly, better pain control does appear to be warranted. We will utilize Tylenol for mild, Roxanol for moderate and IV morphine for severe pain and try to work towards a plan that has oral pain control adequate. Once we have effected better pain control, can start to work towards planning towards either back to her shelter or back to home with hospice. We will consult social work lecturer in this regard. 2. Mild confusion. It is uncertain what her baseline mentation is currently. It is hard to tell how much of it is confusion versus how much of it is stoicism. We will certainly continue to follow her closely. 3. Venous thromboembolic disease. Continue her Lovenox.
[2017-03-24 23:57] VITALS: BP 106/61; PULSE 77; TEMP 37; O2SAT 97
[2017-03-25 03:22] VITALS: BP 98/58; PULSE 63; TEMP 36.8; O2SAT 98
[2017-03-25 06:01] VITALS: Ht 172.7 cm; Wt 58.7 kg
[2017-03-25 07:19] VITALS: BP 107/59; PULSE 65; TEMP 36.8; O2SAT 96
[2017-03-25] MEDS: MAGNESIUM OXIDE 400 MG TAB PO SCH (07:31)
[2017-03-25] MEDS: ENOXAPARIN 60 MG/0.6 ML SYR SQ SCH (09:03)
[2017-03-25] MEDS ORDERED: CHOLESTYRAMINE LIGHT 4 GM PKT PO SCH (10:00)
[2017-03-25 11:30] VITALS: BP 104/63; PULSE 75; TEMP 36.7; O2SAT 98
[2017-03-25] MEDS ORDERED: FENTANYL 25 MCG/HR TDSY TD SCH (14:30)
[2017-03-25 14:49] VITALS: BP 116/74; PULSE 71; TEMP 36.6; O2SAT 98
[2017-03-25 15:45] VITALS: O2SAT 98
[2017-03-25] MEDS ORDERED: CHECK FENTANYL PATCH PLACEMENT SCH (16:00)
--- NOTE | 2017-03-25 16:49 | Discharge Instructions ---
Discharge Instructions Date of Service March 25, 2017. Admission Reason for Admission: Intractible Pain, Metastatic Ovarian Ca Discharge Discharge Diagnosis / Problem: intractable pain Discharge Goals Goal(s): Decrease discomfort, Improve function Activity Recommendations Activity Limitations: resume your previous activity . Instructions / Follow-Up Instructions / Follow-Up 76-year-old female with past medical history of metastatic ovarian cancer presented as a direct admit due to intractable pain. Intractable pain secondary to metastatic ovarian cancer: - Had received morphine and Roxanol for pain control - Started on 25 g of fentanyl patch, change every 72 hours - May use Percocet 5-325 every 4-6 hours for breakthrough pain - She wanted to switch hospice agency- case mgr working with her Venous thromboembolism: -Continue Lovenox Current Hospital Diet Patient's current hospital diet: Regular Diet Discharge Diet Recommended Diet: Regular Diet Pending Studies Studies pending at discharge: no Medical Emergencies . Who to Call and When: Medical Emergencies: If at any time you feel your situation is an emergency, please call 911 immediately. . Non-Emergent Contact Non-Emergency issues call your: Primary Care Provider . . "Provider Documentation" section prepared by Gail Moore. . VTE Core Measure Inpt VTE Proph given/why not?: Enoxaparin (Lovenox)SQ
[2017-03-25] MEDS ORDERED: OXYC-57 PO (17:24)
[2017-03-25] MEDS ORDERED: FNTTP25 TD (17:24)
--- NOTE | 2017-03-25 17:28 | Discharge Summary ---
Discharge Summary Date of Service March 25, 2017. (Gail Moore MD) Discharge Summary Admission Date: March 24, 2017 at 16:42 Discharge Date: March 25, 2017 Discharge Disposition: Home Principal Diagnosis: intractable pain Immunizations: Have You Had Influenza Vaccine: N/A History of Tetanus Vaccine?: Yes History of Pneumococcal: No History of Hepatitis B Vaccine: Unknown (Gail Moore MD) Medication Reconciliation New Medications: Fentanyl (Fentanyl) 25 Mcg Tdsy 25 MCG TD Q72H, #10 Oxycodone/Acetaminophen 5MG/325MG (Percocet 5MG/325MG) Tab 1 TABLET PO Q4H PRN for Pain, #20 TAB PAIN Continued Medications: Acetaminophen (Tylenol) 325 Mg Tab 650 MG PO Q6, TAB Cholestyramine (Cholestyramine Light) 4 Gm Pack 4 GM PO DAILY@1000, #14 0 Refills Enoxaparin (Lovenox) 60 Mg/0.6 Ml Inj 60 MG SQ Q12H, SYR Magnesium Oxide (Magnesium-Oxide) 400 Mg Tab 400 MG PO BID for 5 Days, TAB 0 Refills Discharge Exam Feels her pain is better controlled. Denies any nausea, vomiting, abdominal pain, diarrhea or constipation. Denies any urinary symptoms Review of Systems: Constitutional: No chills, No fever Eyes: No worsening of vision ENT: No hearing loss Respiratory: No cough, No sputum Abdomen: No nausea, No pain, No vomiting Genitourinary - Female: No dysuria, No urinary frequency, No urinary urgency Psychiatric: No depression symptoms Physical Exam: General Appearance: WD/WN, no apparent distress Eyes: normal inspection ENT: normal ENT inspection, hearing grossly normal Neck: supple Respiratory/Chest: chest non-tender, lungs clear, normal breath sounds, no respiratory distress Cardiovascular: regular rate, rhythm Abdomen / GI: normal bowel sounds, non tender, soft, + distended Extremities: normal inspection, no pedal edema Neurologic/Psychiatric: alert, normal mood/affect, oriented x 3 (Gail Moore MD) pain almost resolved today Review of Systems: Constitutional: No fever Respiratory: No shortness of breath Abdomen: No constipation Physical Exam: General Appearance: no apparent distress Respiratory/Chest: lungs clear, no respiratory distress Cardiovascular: regular rate, rhythm Abdomen / GI: normal bowel sounds, non tender, soft Neurologic/Psychiatric: alert, oriented x 3 Skin: warm/dry (Edda Griffin M.D.) Hospital Course 76-year-old female with past medical history of metastatic ovarian cancer presented as a direct admit due to intractable pain. Intractable pain secondary to metastatic ovarian cancer: - Had received morphine and Roxanol for pain control - Started on 25 g of fentanyl patch, change every 72 hours - May use Percocet 5-325 every 4-6 hours for breakthrough pain - She wanted to switch hospice agency- caser shoe parts working with her Venous thromboembolism: -Continue Lovenox Total Time Spent: Less than 30 minutes This includes examination of the patient, discharge planning, medication reconciliation, and communication with other providers. (Gail Moore MD) I have reviewed the medical record and performed a history and physical examination of this patient today. I have discussed the case with Dr Moore. The above note reflects my findings, conclusions, and recommendations. Total Time Spent: Greater than 30 minutes (35) (Edda Griffin M.D.) Discharge Instructions Please refer to the electronic Patient Visit Report (Discharge Instructions) for additional information. (Gail Moore MD) Resident Tracking Resident Involvement: Resident Care Provided Care Provided: Adult Hospital Medicine (Gail Moore MD)
[2017-03-25 17:54] VITALS: BP 116/74; PULSE 71; TEMP 36.6; O2SAT 98
[2017-03-28] MEDS ORDERED: FENTANYL PATCH REMOVE & WASTE SCH (14:30)
== END 2017-03-25 20:15 | DRG 948 ==
LOC: C.4E 16:42
PROVIDERS: ADMIT Family Medicine; ATTEND Family Medicine
DX: G89.3 Neoplasm related pain (acute) (chronic) (principal); C56.9 Malignant neoplasm of unspecified ovary; C79.9 Secondary malignant neoplasm of unspecified site; Z86.718 Personal history of other venous thrombosis and embolism; Z83.3 Family history of diabetes mellitus

== ENCOUNTER → 2017-04-04 | Outpatient (CLI) | payer OTHER, BC ==
[~2017-04-04] MED LIST changes: +FNTTP25 TD; +OXYC-57 PO
[2017-04-04 21:37] LABS: MANUAL MICROSCOPIC REQUIRED? NO; REVIEW REQ? NO; URINE APPEARANCE CLEAR (CLEAR); URINE BILIRUBIN NEG (NEG); URINE COLOR DK YELLOW; URINE EPITHELIAL CELL AUTO 20-30 /lpf (0-5); URINE NITRITE NEG (NEG); URINE PH 5.5 (4.5-7.5); URINE SPECIFIC GRAVITY 1.023 (1.000-1.030); UROBILINOGEN NEG (NEG)
== END ==
LOC: C.LABUPNIT 12:37
PROVIDERS: ATTEND Family Medicine
DX: R41.0 Disorientation, unspecified (principal)

== ENCOUNTER → 2017-05-12 | Outpatient (CLI) | payer OTHER, BC ==
[2017-05-13 00:45] LABS: URINE APPEARANCE CLEAR (CLEAR); URINE BILIRUBIN NEG (NEG); URINE COLOR YELLOW; URINE EPITHELIAL CELL AUTO >30 /lpf (0-5); URINE NITRITE NEG (NEG); URINE SPECIFIC GRAVITY 1.016 (1.000-1.030); UROBILINOGEN NEG (NEG)
[2017-05-13 00:46] LABS: MANUAL MICROSCOPIC REQUIRED? NO; REVIEW REQ? YES
== END ==
LOC: C.LABUPNIT 10:29
PROVIDERS: ATTEND Family Medicine
DX: R33.9 Retention of urine, unspecified (principal)